=== PATIENT | female | born 1960 | race African-American/Black ===

== ENCOUNTER 2016-12-02 11:00 | Inpatient (IN) | payer MEDICARE, MEDICAID ==
[~2016-12-02 11:00] MED LIST: ISOVUE-370 76%-LOCM 1 ML ONE
[2016-12-02 11:59] LABS: #Lymphocytes 1.3 thou/uL (1.20-3.40); #Monocytes 0.3 thou/uL (0.11-0.59); #Neutrophils 11.6 thou/uL (1.40-6.50); %Basophils 0.3 % (0.0-1.0); %Lymphocytes 9.9 % (21.0-51.0); %Monocytes 2.3 % (0.0-10.0); Hematocrit 52.1 % (36.0-47.0); Mean Platelet Volume 7.8 fL (7.4-10.4); Red Blood Cell (RBC) Count 5.41 mill/uL (4.20-5.40); White Blood Cell (WBC) Count 13.3 thou/uL (4.8-10.8)
[2016-12-02 12:21] LABS: ALT (SGPT) 11 U/L (8-55); AST (SGOT) 15 U/L (5-34); Alkaline Phosphatase 94 U/L (40-150); Anion Gap 19 mmol/L (10-20); BUN (Urea Nitrogen) 10 mg/dL (9.8-20.1); Bilirubin, Total 0.5 mg/dL (0.2-1.2); Calc. Creatinine Clearance 0 mL/min (70-130); Carbon Dioxide 22 mmol/L (22-29); Chloride 101 mmol/L (98-107); Estimated GFR-MDRD Greater than 90; Lipase Less than 4 U/L (8-78); Protein, Total 8.3 g/dL (6.0-8.3)
[2016-12-02] MEDS ORDERED: Ondansetron ODT 4 MG TAB ONE (12:26)
[2016-12-02 12:31] LABS: Lactic Acid - Sepsis 4.2 mmol/L (0.5-2.2)
[2016-12-02 12:34] LABS: Troponin I Less than 0.010 ng/mL (< 0.028)
--- NOTE | 2016-12-02 12:53 | RAD ---
CHEST 1 VIEW: HISTORY: Chest pain. COMPARISON: 09/26/16. FINDINGS: The cardiac silhouette and pulmonary vasculature are unremarkable. Shallow inspiration accentuates pulmonary markings. Mediastinum is midline. There is no confluent airspace consolidation or eviden ce of pneumothorax. child monitor leads overlie the chest. IMPRESSION: No active cardiopulmonary abnormalities are demonstrated. POS: [facility]
[2016-12-02] MEDS ORDERED: cloNIDine HCl 0.1 MG TAB ONE ×2 (13:21→13:51)
[2016-12-02] MEDS ORDERED: Enalaprilat Dihydrate 1.25 MG/ML VIAL SLOW IVP SCH (14:30)
--- NOTE | 2016-12-02 15:49 | CT ---
CT ABDOMEN AND PELVIS WITH IV CONTRAST: 12/02/16 HISTORY: Sharp abdominal pain. COMPARISON: 10/16/16. FINDINGS: Mild atelectasis is present at the lung bases. The gallbladder is surgically absent with associated mild distention of the biliary system. Dystrophic calcifications are associated with an area of scar ring at the superior pole of the right kidney. There is prominent calcification throughout the arter ial structures. Lack of oral contrast limits evaluation of the bowel. There is no evidence of obstru ction. IMPRESSION: 1. Status post cholecystectomy. 2. Atherosclerosis. 3. No acute abnormalities are demonstrated. POS: [facility]
[2016-12-02 16:13] LABS: Bilirubin Negative (Negative); Blood, Urine Negative (Negative); Glucose, Urine (Dipstick) 100 mg/dL (Negative); Ketone, Urine Negative (Negative); Nitrite Negative (Negative); Protein, Urine (Dipstick) Trace mg/dL (Neg-Trace)
[2016-12-02 16:24] LABS: Amphetamine Not Detected (NotDetected); Methadone Not Detected (NotDetected); Methamphetamine Not Detected (NotDetected)
[2016-12-02 16:55] VITALS: BMI 29.5
[2016-12-02] MEDS ORDERED: Acetaminophen 325 MG TAB PO PRN (19:04)
[2016-12-02] MEDS ORDERED: tiZANidine HCl 4 MG TAB PO PRN (19:05)
--- NOTE | 2016-12-02 19:48 | HP ---
PRIMARY CARE PHYSICIAN: Adalberto Carlos M.D. CHIEF COMPLAINT: Abdominal pain and chest pain. HISTORY OF PRESENT ILLNESS: Ms. Aiken is a pleasant 56-year-old lady who was seen at [facility] on 12/02/2016. She reports that she developed pain all over her body around 1 1:00 p.m. last night. She reports eating [employer] last night. She describes that the pain is sh mariam, over both her abdomen and chest, nonradiating, not accompanied by nausea or vomiting. She had a bowel movement last night. She reports having similar pains in the past. She reports using crack cocaine 4 days ago. She describes that the pain was 10/10 at its worst, has improved since then. REVIEW OF SYSTEMS: The following complete review of systems was negative, unless otherwise mentione d in the HPI or below: Constitutional: Weight loss or gain, sense of well-being, ability to conduct usual activities, exer cise tolerance. Skin/Breast: Rash, itching, changes in hair growth or loss, nail changes, breast lumps, tenderness, swelling, nipple discharge. Eyes: Vision, double vision, tearing, blind spots, pain. ENT/Mouth: Headaches (location, time of onset, duration, precipitating factors), vertigo, lighthead edness, injury. Vision, double vision, tearing, blind spots, pain, nose bleeding, colds, obstruction , discharge, dental difficulties, gingival bleeding, dentures, neck stiffness, pain, tenderness, mas ses in thyroid or other areas. Cardiovascular: Precordial pain, substernal distress, palpitations, syncope, dyspnea on exertion, o rthopnea, nocturnal paroxysmal dyspnea, edema, cyanosis, hypertension, heart murmurs, varicosities, phlebitis, claudication. Respiratory: Pain, shortness of breath, wheezing, stridor, cough, hemoptysis, fever or night sweats . Gastrointestinal: Poor appetite, dysphagia, indigestion, abdominal pain, heartburn, eructation, elieser sea, vomiting, hematemesis, jaundice, constipation, or diarrhea, abnormal stools (carmelina-colored, salbador y, bloody, greasy, foul smelling), flatulence, hemorrhoids, recent changes in bowel habits. Genitourinary: Urgency, frequency, dysuria, nocturia, hematuria, polyuria, oliguria, unusual (or ch casey in) color of urine, stones, hesitancy, change in size of stream, dribbling, acute retention or incontinence, libido, potency. Musculoskeletal: Pain, swelling, redness or heat of muscles or joints, limitation, of motion, muscu lar weakness, atrophy, cramps. Neurologic/Psychiatric: Convulsions, paralyses, tremor, incoordination, paresthesias, difficulties with memory of speech, sensory or motor disturbances, or muscular coordination (ataxia, tremor), emo tional problems, anxiety, depression, previous psychiatric care, unusual perceptions, hallucinations . Allergy/Immunologic: Skin rash, anemia, bleeding tendency, polydipsia, polyuria, intolerance to hea t or cold. PAST MEDICAL HISTORY: Significant for hypertension, gastroesophageal reflux disease, degenerative j oint disease, depression, nausea, and vomiting. PAST SURGICAL HISTORY: Significant for cholecystectomy, appendectomy, and hysterectomy. FAMILY HISTORY: She denies any family history of coronary artery disease. ALLERGIES: No known drug allergies. CURRENT MEDICATIONS: Include alprazolam 2 mg 3 times a day, Flexeril 10 mg 3 times a day, naproxen 250 mg 2 times a day, omeprazole 40 mg daily, pregabalin 25 mg 2 times a day, tizanidine 2 mg 2 time s a day, venlafaxine 75 mg 2 times a day, clonidine 0.1 mg 2 times a day, and tramadol 100 mg 3 time s a day. PHYSICAL EXAMINATION: GENERAL: Ms. Aiken is awake and alert, in mild distress, crying. She reports that she is crying because she feels cold. She also reports that she is currently not in pain. VITAL SIGNS: Blood pressure is 168/96, pulse is 90, respiratory rate is 20, and she is saturating 9 8% on room air. She is afebrile. Earlier, she had a blood pressure as high as 222/130. EYES: No scleral icterus. No conjunctival pallor. ENT: Moist mucosal membranes, no oropharyngeal erythema or exudates. NECK: Supple, nontender, normal range of movement, trachea is midline. RESPIRATORY: Accessory muscles of breathing are not active. Chest wall movements are symmetric briana aterally. LUNGS: Clear to auscultation, without wheeze, rhonchi or crepitations. CARDIOVASCULAR: S1 and S2 are heard, regular. LUNGS: Peripheral pulses palpable. No carotid bruit, no pericardial rub. ABDOMEN: Soft, mild right lower quadrant tenderness, no guarding or rigidity, bowel sounds heard, n o hepatomegaly, no splenomegaly. NEUROLOGIC: Cranial nerves II-XII are intact. Deep tendon reflexes are 2+. MUSCULOSKELETAL: Power is 5/5 in all 4 extremities, normal range of movement at all major extremity joints. SKIN: No rashes or subcutaneous nodules. LYMPHATIC: No cervical lymphadenopathy. PSYCHIATRIC: The patient is tearful, oriented to person, place, and time. LABS AND INVESTIGATIONS: Ms. Aiken's labs and investigations were reviewed. I reviewed her elect rocardiogram, which shows normal sinus rhythm, no ST changes to suggest an acute coronary syndrome. I also reviewed her chest x-ray, which does not show any pulmonary infiltrates. She also had a CT scan of the abdomen and pelvis, which did not reveal any acute abnormalities. Laboratory investigat ion showed leukocytosis with 13,300 white cells, of which 87.5% are neutrophils, elevated hemoglobin of 17.1, normal platelet count, normal electrolytes, normal creatinine, elevated lactic acid of 4.2 at 11:47 hours today, trending down to 3.4 at 15:55 hours today, unremarkable liver profile, urinal ysis is positive for glucose, but negative for nitrates and leukocyte esterase and urine toxicology screen positive for opiates, cocaine metabolites and cannabinoids. ASSESSMENT AND PLAN: Ms. Aiken is a 56-year-old lady who was seen at [facility] on 12/02/2016. Her problem list includes: 1. Hypertensive urgency: Ms. Aiken has elevated blood pressures. She will be admitted to the [facility] and treated with antihypertensives, intravenously as needed. We will monitor her on telemetr y for now. 2. Abdominal pain: This appears to have improved significantly. No acute abnormality on CT scan o f the abdomen. 3. Chest pain: This has resolved as well. 4. Lactic acidosis: Clear etiology not identifiable. We will recheck her lactic acid level. We w ill also provide intravenous fluids for possible dehydration. 5. Leukocytosis: No clear evidence of infection. If she spikes a fever, we will start antibiotics . Please note that the chest x-ray and urine studies are unremarkable. CT scan of the abdomen and pelvis was also unremarkable. 6. Tobacco use: The patient has been counseled regarding tobacco cessation. 7. Recreational drug abuse: The patient has been counseled regarding cessation of recreational lesly g use. Many thanks for allowing me to participate in your patient's care. Please feel free to contact me w ith any questions or concerns. LEVEL OF RISK: High. LEVEL OF COMPLEXITY: High.
[2016-12-02] MEDS: Ondansetron HCl/PF 4 MG/2 ML Vial IVP PRN (21:25)
[2016-12-02] MEDS: cloNIDine HCl 0.1 MG TAB PO SCH (21:25)
[2016-12-02] MEDS: Cyclobenzaprine 10 MG TAB PO SCH (21:25)
[2016-12-02] MEDS: Pregabalin 25 MG CAP PO SCH (21:26)
[2016-12-02] MEDS: Naproxen 500 MG TAB PO SCH (21:26)
[2016-12-02] MEDS: traMADol HCl 50 MG TAB PO SCH (21:26)
[2016-12-02] MEDS: Nicotine 21 MG PATCH TD SCH (21:27)
[2016-12-03] MEDS: ALPRAZolam 1 MG TAB PO PRN ×2 (04:05→21:09)
[2016-12-03] MEDS: Ondansetron HCl/PF 4 MG/2 ML Vial IVP PRN (04:06)
[2016-12-03 05:28] LABS: #Lymphocytes 1.4 thou/uL (1.20-3.40); #Monocytes 1.2 thou/uL (0.11-0.59); #Neutrophils 10.8 thou/uL (1.40-6.50); %Basophils 0.3 % (0.0-1.0); %Eosinophils 0.1 % (0.0-10.0); %Lymphocytes 10.1 % (21.0-51.0); %Monocytes 8.6 % (0.0-10.0); Hematocrit 48.6 % (36.0-47.0); Mean Platelet Volume 7.5 fL (7.4-10.4); White Blood Cell (WBC) Count 13.4 thou/uL (4.8-10.8)
[2016-12-03 06:01] LABS: Anion Gap 15 mmol/L (10-20); BUN (Urea Nitrogen) 11 mg/dL (9.8-20.1); Calc. Creatinine Clearance 112 mL/min (70-130); Calcium 9.4 mg/dL (7.8-10.44); Carbon Dioxide 25 mmol/L (22-29); Chloride 98 mmol/L (98-107); Estimated GFR-MDRD Greater than 90
[2016-12-03] MEDS ORDERED: Potassium Chloride 20 MEQ TAB PO SCH (06:30)
[2016-12-03] MEDS: traMADol HCl 50 MG TAB PO SCH ×3 (09:48→21:05)
[2016-12-03] MEDS: Naproxen 500 MG TAB PO SCH ×2 (09:48→21:09)
[2016-12-03] MEDS: Enoxaparin Sodium 40 MG/0.4 ML SYRINGE SC SCH (09:49)
[2016-12-03] MEDS: Cyclobenzaprine 10 MG TAB PO SCH ×3 (09:49→21:04)
[2016-12-03] MEDS: cloNIDine HCl 0.1 MG TAB PO SCH ×2 (09:49→21:01)
[2016-12-03] MEDS: Pregabalin 25 MG CAP PO SCH ×2 (10:19→21:08)
--- NOTE | 2016-12-03 11:41 | PDOC.PN ---
- Subjective Encounter Start Date: 12/03/16 Encounter Start Time: 08:40 Pt seen for followup re: hypokalemia. Sleepy, says she feels better. Abdo pain better. No nausea, vomiting or diarrhea. - Objective MAR Reviewed: Yes Vital Signs & Weight: Vital Signs (12 hours) Temp Pulse Resp BP BP Pulse Ox 12/03/16 09:49 180/110 H 12/03/16 09:30 99.7 F H 102 H 16 180/110 H 92 L 12/03/16 04:05 99.1 F 102 H 18 115/78 95 Weight Weight 163 lb I&O: 12/02/16 12/03/16 12/04/16 06:59 06:59 06:59 Intake Total 800 Output Total 300 Balance 500 Result Diagrams: 12/03/16 04:24 12/03/16 04:24 EKG Reviewed by me: Yes (Tele: sinus tachycardia) Phys Exam - Physical Examination Constitutional: NAD HEENT: moist MMs, sclera anicteric Neck: supple Respiratory: no wheezing, no rales, no rhonchi, clear to auscultation bilateral Cardiovascular: RRR, no rub Gastrointestinal: soft, non-tender, no distention, positive bowel sounds Musculoskeletal: no edema, pulses present Neurological: non-focal, normal sensation, moves all 4 limbs Lymphatic: no nodes Psychiatric: normal affect Deviation from normal: Oriented to person and place, not to time. Skin: no rash, normal turgor, cap refill <2 seconds Dx/Plan (1) Hypokalemia Code(s): E87.6 - HYPOKALEMIA Status: Acute (2) Hypertensive urgency Code(s): I16.0 - HYPERTENSIVE URGENCY Status: Resolved (3) Leucocytosis Code(s): D72.829 - ELEVATED WHITE BLOOD CELL COUNT, UNSPECIFIED Status: Acute (4) Abdominal pain Code(s): R10.9 - UNSPECIFIED ABDOMINAL PAIN Status: Resolved (5) HTN (hypertension) Code(s): I10 - ESSENTIAL (PRIMARY) HYPERTENSION Status: Chronic (6) Tobacco abuse Code(s): Z72.0 - TOBACCO USE Status: Chronic (7) Lactic acidosis Code(s): E87.2 - ACIDOSIS Status: Resolved (8) Cocaine abuse Code(s): F14.10 - COCAINE ABUSE, UNCOMPLICATED Status: Chronic - Plan PT/OT, out of bed/ambulate, DVT proph w/lovenox * . Replace potassium. Mobilize pt. Counseled re: tobacco and recreational drug cessation. No evidence of infection, no fevers. BP improved. Likely home 1-2 days. Review of Systems - Medications/Allergies Allergies/Adverse Reactions: Allergies Allergy/AdvReac Type Severity Reaction Status Date / Time No Known Allergies Allergy Verified 01/14/16 05:51 Medications: Current Medications Acetaminophen (Tylenol) 650 mg PO Q4H PRN PRN Reason: Headache/Fever or Pain Alprazolam (Xanax) 2 mg PO TID PRN PRN Reason: Anxiety Last Admin: 12/03/16 04:05 Dose: 2 mg Clonidine HCl (Catapres) 0.1 mg PO BID [facility] Last Admin: 12/03/16 09:49 Dose: 0.1 mg Cyclobenzaprine HCl (Flexeril) 10 mg PO TID [facility] Last Admin: 12/03/16 09:49 Dose: 10 mg Enoxaparin Sodium (Lovenox) 40 mg SC 0900 [facility] Last Admin: 12/03/16 09:49 Dose: 40 mg Hydralazine HCl (Apresoline) 20 mg SLOW IVP Q6H PRN PRN Reason: SBP Greater Than 170 Naproxen (Naprosyn) 250 mg PO BID [facility] Last Admin: 12/03/16 09:48 Dose: 250 mg Nicotine (Nicoderm Patch) 21 mg TD Q24HR [facility] Last Admin: 12/02/16 21:27 Dose: Not Given Ondansetron HCl (Zofran) 4 mg IVP Q6H PRN PRN Reason: Nausea/Vomiting Last Admin: 12/03/16 04:06 Dose: 4 mg Pantoprazole Sodium (Protonix) 40 mg PO DAILY [facility] Last Admin: 12/03/16 09:49 Dose: 40 mg Pregabalin (Lyrica) 25 mg PO BID [facility] Last Admin: 12/03/16 10:19 Dose: 25 mg Tizanidine HCl (Zanaflex) 2 mg PO BID PRN PRN Reason: pain Tramadol HCl (Ultram) 100 mg PO TID [facility] Last Admin: 12/03/16 09:48 Dose: 100 mg Venlafaxine HCl (Effexor) 75 mg PO BID [facility] Last Admin: 12/03/16 09:49 Dose: 75 mg
[2016-12-03] MEDS: Potassium Chloride 20 MEQ TAB PO SCH ×3 (14:26→21:03)
[2016-12-03] MEDS: Nicotine 21 MG PATCH TD SCH (21:09)
[2016-12-04 05:20] LABS: Anion Gap 17 mmol/L (10-20); BUN (Urea Nitrogen) 26 mg/dL (9.8-20.1); Calc. Creatinine Clearance 33 mL/min (70-130); Calcium 8.8 mg/dL (7.8-10.44); Carbon Dioxide 16 mmol/L (22-29); Chloride 103 mmol/L (98-107); Estimated GFR-MDRD 27
[2016-12-04 05:52] LABS: Band 1 % (5-11); Hematocrit 47.8 % (36.0-47.0); Mean Platelet Volume 7.9 fL (7.4-10.4); Neutrophil 53 % (42-75); Reactive Lymphocytes 4 % (0-10); Red Blood Cell (RBC) Count 4.82 mill/uL (4.20-5.40); White Blood Cell (WBC) Count 8.3 thou/uL (4.8-10.8)
[2016-12-04] MEDS: cloNIDine HCl 0.1 MG TAB PO SCH ×2 (08:18→21:07)
[2016-12-04] MEDS: Naproxen 500 MG TAB PO SCH (08:19)
[2016-12-04] MEDS: Cyclobenzaprine 10 MG TAB PO SCH ×3 (08:20→21:13)
[2016-12-04] MEDS: Enoxaparin Sodium 40 MG/0.4 ML SYRINGE SC SCH (08:21)
[2016-12-04] MEDS: traMADol HCl 50 MG TAB PO SCH ×3 (08:22→21:13)
[2016-12-04] MEDS: Pregabalin 25 MG CAP PO SCH ×2 (10:02→21:00)
[2016-12-04 11:05] LABS: Anion Gap 17 mmol/L (10-20); BUN (Urea Nitrogen) 33 mg/dL (9.8-20.1); Calc. Creatinine Clearance 33 mL/min (70-130); Calcium 9.4 mg/dL (7.8-10.44); Carbon Dioxide 20 mmol/L (22-29); Chloride 103 mmol/L (98-107); Estimated GFR-MDRD 27
--- NOTE | 2016-12-04 11:28 | PDOC.PN ---
- Subjective Encounter Start Date: 12/04/16 Encounter Start Time: 11:28 Pt seen for followup re: BORIS. Denies chest pain, nausea or vomiting. No fevers or chills. - Objective MAR Reviewed: Yes Vital Signs & Weight: Vital Signs (12 hours) Temp Pulse Resp BP BP BP Pulse Ox 12/04/16 10:02 108/67 12/04/16 08:18 103/74 12/04/16 08:00 97.4 F L 62 18 103/74 92 L 12/04/16 05:00 97.4 F L 61 16 96/63 96/63 92 L 12/04/16 01:00 98.0 F 64 18 91/54 L 92 L Weight Weight 163 lb I&O: 12/03/16 12/04/16 12/05/16 06:59 06:59 06:59 Intake Total 800 Output Total 300 Balance 500 Result Diagrams: 12/04/16 03:55 12/04/16 10:24 Phys Exam - Physical Examination Constitutional: NAD HEENT: moist MMs Neck: supple Respiratory: no wheezing, no rales, no rhonchi, clear to auscultation bilateral Cardiovascular: RRR Gastrointestinal: soft Musculoskeletal: pulses present Neurological: moves all 4 limbs Psychiatric: normal affect Skin: no rash Dx/Plan (1) BORIS (acute kidney injury) Code(s): N17.9 - ACUTE KIDNEY FAILURE, UNSPECIFIED Status: Acute (2) Hypokalemia Code(s): E87.6 - HYPOKALEMIA Status: Resolved (3) Leucocytosis Code(s): D72.829 - ELEVATED WHITE BLOOD CELL COUNT, UNSPECIFIED Status: Resolved (4) Hypertensive urgency Code(s): I16.0 - HYPERTENSIVE URGENCY Status: Resolved (5) Abdominal pain Code(s): R10.9 - UNSPECIFIED ABDOMINAL PAIN Status: Resolved (6) HTN (hypertension) Code(s): I10 - ESSENTIAL (PRIMARY) HYPERTENSION Status: Chronic (7) Tobacco abuse Code(s): Z72.0 - TOBACCO USE Status: Chronic (8) Lactic acidosis Code(s): E87.2 - ACIDOSIS Status: Resolved (9) Cocaine abuse Code(s): F14.10 - COCAINE ABUSE, UNCOMPLICATED Status: Chronic - Plan PT/OT, out of bed/ambulate, DVT proph w/heparin * . Consult nephrology. Check renal US, urine lytes. Change Lovenox to heparin. Discussed with pt, updated her. Review of Systems - Review of Systems Constitutional: negative: Fever, Chills, Sweats, Weakness, Malaise Respiratory: negative: Cough, Dry, Shortness of Breath, Hemoptysis, SOB with Excertion, Pleuritic Pain, Sputum, Wheezing Cardiovascular: negative: Chest Pain, Palpitations, Orthopnea, Paroxysmal Noc. Dyspnea, Edema, Light Headedness Gastrointestinal: negative: Nausea, Vomiting, Abdominal Pain, Diarrhea, Constipation, Melena, Hematochezia - Medications/Allergies Allergies/Adverse Reactions: Allergies Allergy/AdvReac Type Severity Reaction Status Date / Time No Known Allergies Allergy Verified 01/14/16 05:51 Medications: Current Medications Acetaminophen (Tylenol) 650 mg PO Q4H PRN PRN Reason: Headache/Fever or Pain Last Admin: 12/03/16 17:10 Dose: 650 mg Alprazolam (Xanax) 2 mg PO TID PRN PRN Reason: Anxiety Last Admin: 12/03/16 21:09 Dose: 2 mg Clonidine HCl (Catapres) 0.1 mg PO BID [facility] Last Admin: 12/04/16 08:18 Dose: Not Given Cyclobenzaprine HCl (Flexeril) 10 mg PO TID [facility] Last Admin: 12/04/16 08:20 Dose: 10 mg Enoxaparin Sodium (Lovenox) 40 mg SC 0900 [facility] Last Admin: 12/04/16 08:21 Dose: 40 mg Hydralazine HCl (Apresoline) 20 mg SLOW IVP Q6H PRN PRN Reason: SBP Greater Than 170 Naproxen (Naprosyn) 250 mg PO BID [facility] Last Admin: 12/04/16 08:19 Dose: 250 mg Nicotine (Nicoderm Patch) 21 mg TD Q24HR [facility] Last Admin: 12/03/16 21:09 Dose: Not Given Ondansetron HCl (Zofran) 4 mg IVP Q6H PRN PRN Reason: Nausea/Vomiting Last Admin: 12/03/16 04:06 Dose: 4 mg Pantoprazole Sodium (Protonix) 40 mg PO DAILY [facility] Last Admin: 12/04/16 08:19 Dose: 40 mg Pregabalin (Lyrica) 25 mg PO BID [facility] Last Admin: 12/04/16 10:02 Dose: 25 mg Tizanidine HCl (Zanaflex) 2 mg PO BID PRN PRN Reason: pain Tramadol HCl (Ultram) 100 mg PO TID [facility] Last Admin: 12/04/16 08:22 Dose: 100 mg Venlafaxine HCl (Effexor) 75 mg PO BID [facility] Last Admin: 12/04/16 10:02 Dose: 75 mg
--- NOTE | 2016-12-04 12:55 | ULT ---
RENAL ULTRASOUND: HISTORY: Acute renal insufficiency. TECHNIQUE: Real-time imaging of the right and left kidneys was performed. FINDINGS: The right kidney measures 12.6 and the left kidney 13.5 cm in size. No signs of cyst, mass, or obst ruction. The bladder was incompletely distended at the time of this exam. IMPRESSION: Unremarkable renal ultrasound. POS: OFF
[2016-12-04 14:41] LABS: Sodium, Urine Less than 20 mmol/L (Not Available)
[2016-12-04] MEDS: Heparin 5,000 UNITS/ML VIAL SC SCH ×2 (14:48→21:12)
[2016-12-04 15:00] LABS: Potassium, Urine 78.4 mmol/L
[2016-12-04] MEDS ORDERED: Sodium Chloride 0.9% 1,000 ML IV SCH (17:15)
--- NOTE | 2016-12-04 17:33 | CON ---
DATE OF CONSULTATION: 12/04/2016 REASON FOR CONSULTATION: Elevated creatinine. HISTORY OF PRESENT ILLNESS: This is a 56-year-old female with a history of cocaine abuse, presented to the hospital on 12/02/2016 for abdominal and chest pain after cocaine use. The patient's baseli ne creatinine was 0.8 and increased to 2.2 yesterday, a repeat creatinine was also 2.3. The patient was hyperkalemic. The patient denies no headache, numbness, tingling, or weakness. Denies any elieser sea, vomiting, or chest pain. The patient has been using cocaine and naproxen. PAST MEDICAL HISTORY: Significant for chronic pain, GERD, degenerative joint disease, nausea, vomit ing, cholecystectomy, appendectomy, hysterectomy. FAMILY HISTORY: Negative for ESRD. ALLERGIES: Reviewed. HOME MEDICATIONS: List reviewed. REVIEW OF SYSTEMS: Fifteen point review of systems was performed and negative except positives note d above. GENERAL: Weakness- HEAD: Headache- NECK: No swelling or lumps. NOSE: No epistaxis or discharge. EYES: No diplopia or pain. RESPIRATORY: Dyspnea- CARDIOVASCULAR: Chest pain- GASTROINTESTINAL: Nausea- /[employer]: Hematuria- MUSCULOSKELETAL: No joint pain. NEUROPSYCHIATIC SYSTEMS: No suicidal ideation. No ideation. SKIN: Denies any rash or ulcer. CONSTITUTIONAL: No fever or chills. PHYSICAL EXAMINATION: GENERAL: Patient is awake, alert. VITAL SIGNS: Afebrile, pulse 70, breathing at 16, blood pressure 120/70. GENERAL APPEARANCE AND MENTAL STATUS: Fair. HEAD/NECK: Normocephalic. Atraumatic. EYES: EOMI. No deformity. EARS: Clear. No ulcers. NOSE: Intact. No lesions. MOUTH: Clear. No discharge. THROAT: Clear. No exudate. LUNGS: Clear. No crackles. CARDIAC: S1, S2. No rub. ABDOMEN: Benign. BS+. GENITALIA/RECTUM: Kelly absent. BACK/EXTREMITIES: Edema 0+ Ulcer- NEUROLOGICAL: Alert and motor intact. SKIN: Rash- Bruise- LYMPHATICS: Edema- Ulcer- ASSESSMENT AND RECOMMENDATIONS: 1. Acute kidney injury with chronic kidney disease, most likely due to cocaine as well as non-stero idal anti-inflammatory drugs use in the past. I would recommend the patient to stop doing this also advised the patient to quit tobacco. Start gentle hydration proteinuria, trace will recheck a urin e protein creatinine ratio. 2. Anemia, stable. 3. Hypertension, stable. 4. Proteinuria indicates chronic kidney disease, which was present prior to admission, I will order renal imaging and evaluate further as needed. The patient was educated as well.
[2016-12-04] MEDS: Nicotine 21 MG PATCH TD SCH (21:13)
[2016-12-04] MEDS: ALPRAZolam 1 MG TAB PO PRN (21:13)
[2016-12-05 05:29] LABS: #Basophils 0.1 thou/uL (0.0-0.2); #Eosinphils 0.5 thou/uL (0.0-0.7); #Lymphocytes 2.7 thou/uL (1.20-3.40); #Monocytes 0.9 thou/uL (0.11-0.59); #Neutrophils 3.3 thou/uL (1.40-6.50); %Basophils 1.2 % (0.0-1.0); %Eosinophils 6.5 % (0.0-10.0); %Lymphocytes 36.1 % (21.0-51.0); %Monocytes 11.9 % (0.0-10.0); Hematocrit 45.8 % (36.0-47.0); Mean Platelet Volume 7.7 fL (7.4-10.4); Red Blood Cell (RBC) Count 4.64 mill/uL (4.20-5.40); White Blood Cell (WBC) Count 7.5 thou/uL (4.8-10.8)
[2016-12-05 05:51] LABS: Anion Gap 11 mmol/L (10-20); BUN (Urea Nitrogen) 26 mg/dL (9.8-20.1); Calc. Creatinine Clearance 92 mL/min (70-130); Calcium 8.5 mg/dL (7.8-10.44); Carbon Dioxide 20 mmol/L (22-29); Chloride 109 mmol/L (98-107); Estimated GFR-MDRD 88
[2016-12-05 07:27] VITALS: BP 102/72; TEMP 97.9
--- NOTE | 2016-12-05 07:56 | PRG ---
DATE OF SERVICE: 12/05/2016 SUBJECTIVE: This is a 56-year-old female being seen for acute kidney injury. The patient denies an y nausea, vomiting or chest pain. PHYSICAL EXAMINATION: GENERAL: Patient is awake, alert. VITAL SIGNS: Afebrile, pulse 75, breathing at 16, blood pressure 102/72. GENERAL APPEARANCE AND MENTAL STATUS: Fair. HEAD/NECK: Normocephalic. Atraumatic. EYES: EOMI. No deformity. EARS: Clear. No ulcers. NOSE: Intact. No lesions. MOUTH: Clear. No discharge. THROAT: Clear. No exudate. LUNGS: Clear. No crackles. CARDIAC: S1, S2. No rub. ABDOMEN: Benign. BS+. GENITALIA/RECTUM: Kelly absent. BACK/EXTREMITIES: Edema 0+ Ulcer- NEUROLOGICAL: Alert and motor intact. SKIN: Rash- Bruise- LYMPHATICS: Edema- Ulcer- LABORATORY DATA: Show potassium 4.2, bicarbonate 20. ASSESSMENT AND RECOMMENDATIONS: 1. Acute kidney injury, improved. 2. Metabolic acidosis, stable. 3. Hyponatremia, stable. We will sign off on this patient. The patient will follow up as an outpatient.
[2016-12-05] MEDS: cloNIDine HCl 0.1 MG TAB PO SCH (08:07)
[2016-12-05] MEDS: traMADol HCl 50 MG TAB PO SCH (08:09)
[2016-12-05] MEDS: Pregabalin 25 MG CAP PO SCH (08:09)
[2016-12-05] MEDS: Cyclobenzaprine 10 MG TAB PO SCH (08:09)
[2016-12-05] MEDS: Heparin 5,000 UNITS/ML VIAL SC SCH (08:10)
--- NOTE | 2016-12-05 13:27 | DIS ---
DATE OF ADMISSION: 12/02/2016 DATE OF DISCHARGE: 12/05/2016 PRIMARY CARE PHYSICIAN: Kirsten Carlos M.D. DISCHARGE DIAGNOSES: 1. Acute renal failure, resolved. 2. Hyponatremia, resolved. 3. Abdominal pain, resolved. CONDITION OF PATIENT AT THE TIME OF DISCHARGE: Stable. I assessed Ms. Aiken on the day of discha rge. She denies any chest pain or shortness of breath. She denies any fevers or chills. PHYSICAL EXAMINATION: VITAL SIGNS: Stable. HEENT: Mucosal membranes are moist. NECK: Supple, nontender, S1 and S2 are heard, regular. LUNGS: Clear to auscultation bilaterally. ABDOMEN: Soft, nontender, bowel sounds heard, no hepatomegaly. NEUROLOGIC: Examination is nonfocal. Power is 5/5 in all 4 extremities. No rashes or subcutaneous nodules. The patient is oriented to person, place, and time. DISCHARGE MEDICATIONS: Naproxen was stopped because of renal failure. Alprazolam 2 mg 3 times a da y as needed, Flexeril 10 mg 3 times a day, Nicoderm 21 mg patch daily, omeprazole 40 mg daily, Becca a 25 mg 2 times a day, tizanidine 2 mg 2 times a day as needed, Effexor 75 mg 2 times a day, clonidi ne 0.1 mg 2 times a day, tramadol 100 mg 3 times a day. FOLLOWUP APPOINTMENT: With her primary care provider in 1-3 days. HOSPITAL COURSE: Ms. Aiken is a pleasant 56-year-old lady who was admitted to [facility] on 12/05/2016 complaining of abdominal pain. She had a CT scan of the abdomen and pe lvis which did not reveal any acute abnormality. She did have an elevated lactate level at the time of admission, which subsequently resolved. She also had hyponatremia, which resolved on the day of discharge. Her creatinine was 0.69 on 12/02/2016. It jumped to 2.27 on 12/04/2016. Nephrology Service was con sulted. It was felt that the most likely cause was her use of cocaine and naproxen. She has been a dvised to stop recreational drug use as well as naproxen use. Her creatinine improved to 0.82 on day of discharge. She had renal ultrasound, which was unremarkable. LABORATORY DATA: On the day of discharge, Ms. Aiken has sodium 136, potassium 4.2, creatinine 0.8 2, blood urea nitrogen 26, white count 7,500, hemoglobin 14.5 and platelet count 267,000. She is ad vised to maintain good oral fluid intake. DISCHARGE DESTINATION: Home. TOTAL AMOUNT OF TIME SPENT COORDINATING THIS DISCHARGE: 33 minutes. Many thanks for allowing me to participate in your patient's care. Please feel free to contact me w ith any questions or concerns.
== END 2016-12-05 10:58 | disposition home or self-care (01) | DRG 305 ==
LOC: ERS 11:00 → 2NO 16:47 → T4-B 12-03 18:18
PROVIDERS: ADMIT Internal Medicine; ATTEND Internal Medicine
DX: I16.0 Hypertensive urgency (principal); N17.9 Acute kidney failure, unspecified; E87.2 Acidosis; E87.1 Hypo-osmolality and hyponatremia; E87.5 Hyperkalemia; I12.9 Hypertensive chronic kidney disease with stage 1 through stage 4 chronic kidney disease, or unspecified chronic kidney disease; N18.9 Chronic kidney disease, unspecified; R80.9 Proteinuria, unspecified; D64.9 Anemia, unspecified; D72.829 Elevated white blood cell count, unspecified; F14.10 Cocaine abuse, uncomplicated; F17.210 Nicotine dependence, cigarettes, uncomplicated
CPT/HCPCS: 36415; 36416; 71010; 74177; 76770; 80048; 80053; 80306; 81003; 82436; 82553; 82570; 83605; 83690; 84133; 84300; 84484; 85025; 93005; 96361; 96372; 96374; 96375; J0360; J1644; J1650; J2270; J2405; Q0162

== ENCOUNTER 2017-03-10 12:40 | Inpatient (IN) | payer MEDICARE, MEDICAID ==
[2017-03-10] MEDS ORDERED: Ondansetron HCl/PF 4 MG/2 ML Vial ONE ×2 (13:27→16:06)
[2017-03-10] MEDS ORDERED: cloNIDine 0.1 MG TAB ONE ×2 (14:09→16:00)
[2017-03-10] MEDS ORDERED: Morphine 4 MG/ML Carpuject ONE (14:38)
[2017-03-10 15:03] LABS: #Eosinphils 0.1 thou/uL (0.0-0.7); #Lymphocytes 1.3 thou/uL (1.20-3.40); #Monocytes 0.5 thou/uL (0.11-0.59); #Neutrophils 10.1 thou/uL (1.40-6.50); %Basophils 0.3 % (0.0-1.0); %Eosinophils 0.5 % (0.0-10.0); %Lymphocytes 11.2 % (21.0-51.0); %Monocytes 4.2 % (0.0-10.0); %Neutrophils 83.8 % (42.0-75.0); Hemoglobin 16.7 g/dL (12.0-16.0); Mean Corpuscular HGB CONC 32.5 g/dL (32.0-36.0); Mean Corpuscular Hemoglobin 31.3 pg (27.0-31.0); Mean Corpuscular Volume 96.2 fl (81.0-99.0); Mean Platelet Volume 8.3 fL (7.4-10.4); Platelet Count 270 thou/uL (130-400); RBC Distribution Width 12.6 % (11.5-14.5); Red Blood Cell (RBC) Count 5.36 mill/uL (4.20-5.40)
[2017-03-10 15:19] LABS: ALT (SGPT) 14 U/L (8-55); AST (SGOT) 18 U/L (5-34); Albumin 4.3 g/dL (3.5-5.0); Alkaline Phosphatase 102 U/L (40-150); Anion Gap 18 mmol/L (10-20); BUN (Urea Nitrogen) 12 mg/dL (9.8-20.1); Bilirubin, Total 0.4 mg/dL (0.2-1.2); CK (CPK) 57 U/L (29-168); Calc. Creatinine Clearance 0 mL/min (70-130); Carbon Dioxide 23 mmol/L (22-29); Chloride 103 mmol/L (98-107); Estimated GFR-MDRD Greater than 90; Globulin 3.7 g/dL (2.4-3.5); Glucose 117 mg/dL (70-105); Potassium 3.2 mmol/L (3.5-5.1); Sodium 141 mmol/L (136-145)
[2017-03-10 15:22] LABS: CKMB 2.6 ng/mL (0-6.6); Troponin I Less than 0.010 ng/mL (< 0.028)
[2017-03-10] MEDS ORDERED: Lorazepam 1 MG TAB ONE (16:01)
[2017-03-10 16:06] LABS: Bilirubin Negative (Negative); Blood, Urine Negative (Negative); Clarity CLEAR (Clear); Glucose, Urine (Dipstick) 100 mg/dL (Negative); Leukocyte Negative (Negative); Nitrite Negative (Negative); Protein, Urine (Dipstick) Trace mg/dL (Neg-Trace); Specific Gravity, Urine 1.018 (1.002-1.036); Urobilinogen 0.2 mg/dL (0.2-1.0); pH, Urine 7.5 (5.0-9.0)
[2017-03-10 16:18] LABS: Amphetamine Not Detected (NotDetected); Barbiturates Screen Not Detected (NotDetected); Benzodiazepine Screen Not Detected (NotDetected); Cocaine Metabolite Screen Not Detected (NotDetected); Medtox Reader # READER 1; Methadone Not Detected (NotDetected); Methamphetamine Not Detected (NotDetected); Opiate Screen Not Detected (NotDetected); Oxycodone Screen Not Detected (NotDetected); Phencyclidine (PCP) Not Detected (NotDetected); THC/Cannabinoid Screen Detected (NotDetected); Tricyclic Screen Not Detected (NotDetected)
[2017-03-10 16:19] LABS: Medtox Control Line Valid? VALID (VALID)
--- NOTE | 2017-03-10 16:44 | CT ---
CTA CHEST AND ABDOMEN AORTIC DISSECTION PROTOCOL 03/10/17 HISTORY: Pain. COMPARISON: CTA 08/19/16. There are also numerous other prior CT examinations between the these two. TECHNIQUE: CT angiogram chest and abdomen performed after the intravenous administration of contrast. 3D renderi ng provided. No aortic dissection. No aneurysmal dilatation. There is focal ectasia of the infrarenal abdominal aorta just above the bifurcation measuring 2.4 cm. no aneurysmal dilatation. There is a fo abraham 50% narrowing of the left internal iliac artery for a length of 5 mm. The right and left common i liac arteries measure up to 11 mm. The superior mesenteric artery and celiac trunk are patent as well as the inferior mesenteric artery. No free intraperitoneal gas or fluid, although the entire pelvis is not interrogated on this examina tion. Small calcified hilar lymph nodes. Pulmonary trunk size is at 30 mm, upper limits of normal. There is reservoir effect of the extrahepatic biliary system. No dilated loops of large or small bowel. There is some calcified granulomas in the right middle lobe and right lower lobe. Focal area of pleur al scarring in the right middle lobe. No evidence for pneumonia. 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 No lucio gayla fracture of the thoracic spine. There is 2 mm L4 over L5 anterolisthesis. This is due to degenerative facet arthropathy. No displaced rib fracture. IMPRESSION: No aortic dissection. No acute intrathoracic or intra-abdominal abnormality. POS: [facility]
[2017-03-10] MEDS ORDERED: niCARdipine 20MG In NaCl 20 MG/200 ML BAG ONE (17:54)
[2017-03-10] MEDS ORDERED: Ondansetron ODT 4 MG TAB SL PRN (20:13)
[2017-03-10] MEDS ORDERED: Ondansetron HCl/PF 4 MG/2 ML Vial IVP PRN (20:13)
[2017-03-10] MEDS ORDERED: Acetaminophen 325 MG TAB PO PRN (20:34)
[2017-03-10] MEDS ORDERED: Ondansetron ODT 4 MG TAB PO PRN (20:34)
[2017-03-10] MEDS: niCARdipine HCl 25 MG in Sodium Chloride 0.9% 250 ML 240 ML IVPB SCH (20:58)
[2017-03-10] MEDS: Sodium Chloride 0.9% 1,000 ML IV SCH (20:58)
[2017-03-10] MEDS: HYDROcodone/Acetaminophen 5/325 mg Tablet PO PRN (20:59)
[2017-03-10] MEDS: Famotidine/PF 20 mg/2ml Vial SLOW IVP SCH (20:59)
[2017-03-10] MEDS: Nicotine 14 MG PATCH TD SCH (21:00)
--- NOTE | 2017-03-11 01:04 | HP ---
CHIEF COMPLAINT: Not feeling good. HISTORY OF PRESENT ILLNESS: A 56-year-old woman with history of hypertension, anxiety. She came into the ER, not feeling good. No appetite, feeling nausea, vomiting, weakness. In the ER, her blood pressure is very high. In the ER, her blood pressure was 191/104, respirations 20, pulse 61, and temperature 98.1. In the ER, she was started on nicardipine drip. Blood pressure went to 220/148. She claims of marijuana use and alcohol use recently and denies any chest pain. She does have nausea, vomiting, and no short of breath. PAST MEDICAL HISTORY: History of hypertension, GERD. PAST SURGICAL HISTORY: Appendectomy, cholecystectomy, and hysterectomy. PSYCHIATRIC HISTORY: No history of any homicidal ideation, anxiety, depression. SOCIAL HISTORY: Denies. She drinks socially every week and denies drug use, but she is a chronic smoker. ALLERGIES: She has no known drug allergies. REVIEW OF SYSTEMS: Constitutional: She does have some general weakness. Eyes : Denies any vision changes. ENT: Denies rhinorrhea. Cardiovascular: Denies any chest pain, dyspnea on exertion, and syncopal episode. No palpitation. Respiratory: Denies any cough, short of breath, and wheezing. Gastrointestinal: She does have nausea and vomiting. Genitourinary: No dysuria, no frequency, no hesitancy. Musculoskeletal: She reports generalized pain. Skin: She denies any rash. Neurologic: She denies any dizziness, any focal weakness. Endocrine: She denies any polyuria or polydipsia. Denies any rash. Hematologic: Denies any anemia and bruising. Psychiatric: She does have history of anxiety. FAMILY HISTORY: Noncontributory. Positive for hypertension. PHYSICAL EXAMINATION: GENERAL: When I examined her, she is a middle-aged woman lying in the bed, not in distress, feeling nauseated. VITAL SIGNS: Pulse 74, blood pressure 160/98 and on nicardipine drip. RESPIRATORY: She has diminished breath sounds. HEENT: Head is atraumatic, normocephalic. Pupils are round and reactive. Extraocular movements intact. Ears, nose, and throat normal. Tongue mucosa moist. NECK: Supple, no JVD, no thyromegaly, no carotid bruit. CHEST: Has a normal vascular breathing, no added sound, no rhonchi, no wheezing. CARDIOVASCULAR SYSTEM: S1, S2 audible. No S3 or S4. ABDOMEN: Soft, bowel sounds audible, mild epigastric tenderness. EXTREMITIES: No pedal edema. NEUROLOGICAL: She is alert and oriented x3, no focal deficit. LABORATORY DATA: Shows WBC is 12.0, hemoglobin 16.7, hematocrit 51.5, platelets 270. Sodium 141, potassium 3.2, chloride 103, carbon dioxide 23, BUN 12, creatinine 0.7, calcium 10.0, bilirubin 0.4, glucose 117, AST 18, ALT 14. Troponin less than 0.012. BNP 89. Albumin 4.3, globulin 3.7, ratio 1.2. Urine shows glucose trace, ketones trace. Urine drug screen negative except for cannabinoid positive. The CT chest shows no dissection. EKG shows normal sinus rhythm, 77, no ST changes. In the ER, medicine was given Cardene IV then first given was Ativan 1 mg oral, clonidine 0.1 mg in the beginning, morphine injection 4 mg and Zofran intravenous. ASSESSMENT AND PLAN: Hypertensive emergency versus urgency. Continue IV Cardene drip. Low salt diet, monitor closely. Rule out myocardial infarction by serial EKG and troponin. Get echocardiogram in the morning. Restart home medication. Deep venous thrombosis prophylaxis, Lovenox. Current medications taking, clonidine, Catapres 0.1 mg twice daily. MTDD
[2017-03-11] MEDS: HYDROcodone/Acetaminophen 5/325 mg Tablet PO PRN (02:01)
[2017-03-11] MEDS: Sodium Chloride 0.9% 1,000 ML IV SCH (02:02)
[2017-03-11] MEDS: niCARdipine HCl 25 MG in Sodium Chloride 0.9% 250 ML 240 ML IVPB SCH (02:02)
[2017-03-11 03:14] VITALS: BMI 31.1
[2017-03-11 05:06] LABS: #Monocytes 0.5 thou/uL (0.11-0.59); #Neutrophils 11.1 thou/uL (1.40-6.50); %Basophils 0.2 % (0.0-1.0); %Eosinophils 0.1 % (0.0-10.0); %Lymphocytes 7.9 % (21.0-51.0); %Monocytes 3.9 % (0.0-10.0); %Neutrophils 87.8 % (42.0-75.0); Hemoglobin 16.8 g/dL (12.0-16.0); Mean Corpuscular HGB CONC 33.5 g/dL (32.0-36.0); Mean Corpuscular Hemoglobin 31.6 pg (27.0-31.0); Mean Corpuscular Volume 94.3 fl (81.0-99.0); Mean Platelet Volume 8.4 fL (7.4-10.4); Platelet Count 244 thou/uL (130-400); RBC Distribution Width 12.6 % (11.5-14.5); Red Blood Cell (RBC) Count 5.32 mill/uL (4.20-5.40); White Blood Cell (WBC) Count 12.6 thou/uL (4.8-10.8)
[2017-03-11 05:17] LABS: Anion Gap 15 mmol/L (10-20); BUN (Urea Nitrogen) 8 mg/dL (9.8-20.1); Calc. Creatinine Clearance 135 mL/min (70-130); Calcium 9.2 mg/dL (7.8-10.44); Carbon Dioxide 23 mmol/L (22-29); Chloride 100 mmol/L (98-107); Estimated GFR-MDRD Greater than 90; Glucose 132 mg/dL (70-105); Sodium 135 mmol/L (136-145)
[2017-03-11 05:20] LABS: Potassium 2.9 mmol/L (3.5-5.1)
[2017-03-11 06:48] LABS: Magnesium 1.9 mg/dL (1.6-2.6); Phosphorus 2.9 mg/dL (2.3-4.7)
[2017-03-11] MEDS ORDERED: Potassium Chloride 40 MEQ in Sodium Chloride 0.9% 250 ML 250 ML IVPB SCH (07:00)
[2017-03-11] MEDS: niCARdipine HCl 25 MG in Sodium Chloride 0.9% 250 ML 240 ML IVPB PRN ×2 (07:38→20:04)
[2017-03-11] MEDS: Enoxaparin Sodium 40 MG/0.4 ML SYRINGE SC SCH (08:40)
[2017-03-11] MEDS: Famotidine/PF 20 mg/2ml Vial SLOW IVP SCH ×2 (08:40→20:41)
--- NOTE | 2017-03-11 08:40 | PDOC.PN ---
- Subjective Encounter Start Date: 03/11/17 Encounter Start Time: 08:38 Subjective: Seen and examined feeling better - Objective Resuscitation Status: Resuscitation Status FULL:Full Resuscitation Vital Signs & Weight: Vital Signs (12 hours) Temp Pulse Resp Pulse Ox 03/11/17 08:03 100 03/11/17 07:40 99.0 F 106 H 18 100 03/11/17 07:00 99.0 F 03/11/17 04:00 98.6 F 03/11/17 00:00 98.6 F Weight Weight 175 lb 11.335 oz Most Recent Monitor Data Heart Rate from ECG 93 NIBP 124/68 NIBP BP-Mean 86 Respiration from ECG 16 SpO2 100 I&O: 03/10/17 03/11/17 03/12/17 06:59 06:59 06:59 Intake Total 1847 436 Output Total 650 350 Balance 1197 86 Result Diagrams: 03/11/17 03:55 03/11/17 03:55 Phys Exam - Physical Examination Constitutional: NAD HEENT: PERRLA, moist MMs, sclera anicteric, TM's clear Neck: no nodes, no JVD, supple, full ROM Respiratory: no wheezing, no rales, no rhonchi, clear to auscultation bilateral Cardiovascular: RRR, no significant murmur, no rub Gastrointestinal: soft, non-tender, no distention, positive bowel sounds Musculoskeletal: no edema, pulses present Dx/Plan (1) Hypokalemia Code(s): E87.6 - HYPOKALEMIA Status: Acute (2) Anxiety Code(s): F41.9 - ANXIETY DISORDER, UNSPECIFIED Status: Acute (3) Nausea Code(s): R11.0 - NAUSEA Status: Acute (4) Hypertensive urgency Code(s): I16.0 - HYPERTENSIVE URGENCY Status: Resolved - Plan PT/OT, social media content specialist Start/adjust antihypertensive meds and wean off cardene gtt -: D/c IVF -: Transfer to Tele once off gtt * .
[2017-03-11] MEDS ORDERED: traMADol HCl 50 MG TAB PO PRN (08:41)
[2017-03-11] MEDS ORDERED: cloNIDine 0.2mg/24 Hour PATCH TD SCH (09:00)
[2017-03-11] MEDS: ALPRAZolam 1 MG TAB PO SCH ×2 (09:11→20:41)
[2017-03-11] MEDS: Cyclobenzaprine 10 MG TAB PO SCH ×3 (09:11→20:41)
[2017-03-11] MEDS ORDERED: Carvedilol 25 MG TAB PO SCH (09:30)
[2017-03-11] MEDS: Lisinopril/Hydrochlorothiazide 20/25 mg Tablet PO SCH (10:25)
[2017-03-11] MEDS ORDERED: cloNIDine 0.1 MG TAB PO SCH (11:45)
[2017-03-11] MEDS: Labetalol HCl 100 MG/20 ML VIAL SLOW IVP PRN (14:36)
[2017-03-11] MEDS: Potassium Chloride 20 MEQ TAB PO SCH ×2 (16:10→20:41)
[2017-03-11] MEDS: Carvedilol 25 MG TAB PO SCH (16:38)
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
[2017-03-11] MEDS: cloNIDine 0.1 MG TAB PO SCH (20:40)
[2017-03-11] MEDS: Nicotine 14 MG PATCH TD SCH (20:41)
[2017-03-12] MEDS: Labetalol HCl 100 MG/20 ML VIAL SLOW IVP PRN ×2 (00:05→06:10)
[2017-03-12] MEDS: HYDROcodone/Acetaminophen 5/325 mg Tablet PO PRN ×2 (03:25→13:21)
[2017-03-12 04:36] LABS: Magnesium 2.1 mg/dL (1.6-2.6)
[2017-03-12] MEDS: cloNIDine 0.1 MG TAB PO SCH (08:07)
[2017-03-12] MEDS: ALPRAZolam 1 MG TAB PO SCH (08:07)
[2017-03-12] MEDS: Carvedilol 25 MG TAB PO SCH (08:07)
[2017-03-12] MEDS: Cyclobenzaprine 10 MG TAB PO SCH ×2 (08:07→13:21)
[2017-03-12] MEDS: Enoxaparin Sodium 40 MG/0.4 ML SYRINGE SC SCH (08:07)
[2017-03-12] MEDS: Lisinopril/Hydrochlorothiazide 20/25 mg Tablet PO SCH (08:08)
[2017-03-12] MEDS: Famotidine/PF 20 mg/2ml Vial SLOW IVP SCH (08:08)
[2017-03-12] MEDS ORDERED: FLU VACC QS2017-18 36 mo. & older 0.5 ML SYRINGE IM ONE (09:00)
--- NOTE | 2017-03-12 09:17 | PRG ---
DATE OF SERVICE: 03/12/2017 This morning blood pressure is better. PHYSICAL EXAMINATION: VITAL SIGNS: Blood pressure 157/90, pulse 110, respirations 18. Denies any pain, shortness of breath or wheezing. CHEST: Chest revealed decreased breath sounds, no wheezing or crackles. CARDIAC: Normal S1-S2. No gallops. ABDOMEN: Soft. No masses. Potassium 3, otherwise electrolytes are normal. IMPRESSION: Uncontrolled hypertension, probably poor compliance. PLAN: She can be transferred out of the ICU. She is to refrain from smoking. Pulmonary will follow at a distance.
[2017-03-12 09:28] VITALS: BP 186/90; TEMP 98
--- NOTE | 2017-03-12 11:54 | PDOC.PN ---
- Subjective Encounter Start Date: 03/12/17 Encounter Start Time: 12:30 Subjective: Patient crying because getting blood drawn. Very emotional and -: asking why have to get blood drawn so many times. Complains of chest -: pain, states since got here but no previous complaint on examining chart. Patient asked nurse for morphine earlier for pain, refused oral meds. Does have a history of drug abuse. BP improved somewhat, but still requiring multiple doses of labetalol overnight. - Objective Resuscitation Status: Resuscitation Status FULL:Full Resuscitation MAR Reviewed: Yes Vital Signs & Weight: Vital Signs (12 hours) Temp Pulse Resp BP BP Pulse Ox 03/12/17 09:38 98 F 76 16 03/12/17 09:27 98 F 76 16 186/90 H 96 03/12/17 08:00 98.2 F 59 L 22 H 100 03/12/17 06:10 71 180/109 H 03/12/17 06:00 98.4 F 03/12/17 04:00 98.4 F 03/12/17 00:05 88 191/103 H Weight Weight 175 lb 11.335 oz Most Recent Monitor Data Heart Rate from ECG 62 NIBP 157/96 NIBP BP-Mean 138 Respiration from ECG 22 SpO2 100 I&O: 03/11/17 03/12/17 03/13/17 06:59 06:59 06:59 Intake Total 1847 1803 240 Output Total 650 2600 0 Balance 1197 -797 240 Result Diagrams: 03/11/17 03:55 03/11/17 13:15 Phys Exam - Physical Examination crying about blood draw HEENT: moist MMs Respiratory: no wheezing, no rales, no rhonchi Cardiovascular: RRR, no significant murmur Gastrointestinal: soft, positive bowel sounds Musculoskeletal: no edema Neurological: non-focal, moves all 4 limbs Psychiatric: A&O x 3 Deviation from normal: crying Dx/Plan (1) Hypertensive urgency Code(s): I16.0 - HYPERTENSIVE URGENCY Status: Resolved (2) Diastolic CHF Code(s): I50.30 - UNSPECIFIED DIASTOLIC (CONGESTIVE) HEART FAILURE Status: Acute Qualifiers: Congestive heart failure chronicity: unspecified congestive heart failure chronicity Qualified Code(s): I50.30 - Unspecified diastolic (congestive) heart failure Comment: EF 55-60% (3) Obesity Code(s): E66.9 - OBESITY, UNSPECIFIED Status: Chronic Qualifiers: Body mass index: BMI 30.0-30.9 (4) AMALIA (obstructive sleep apnea) Code(s): G47.33 - OBSTRUCTIVE SLEEP APNEA (ADULT) (PEDIATRIC) Status: Suspected - Plan cont current plan of care out of unit, likely home tomorrow -: increase Coreg * . - Discharge Day Encounter end time: 12:45
[2017-03-12] MEDS ORDERED: Carvedilol 25 MG TAB PO SCH (17:00)
--- NOTE | 2017-03-14 13:19 | DIS ---
ADMISSION DIAGNOSIS: Hypertensive urgency. DISCHARGE DIAGNOSES: 1. Hypertensive urgency, left against medical advice. 2. Diastolic congestive heart failure. 3. Obstructive sleep apnea. HOSPITAL COURSE: The patient was admitted for hypertensive urgency. She was being treated with improvement in the hospital; however, her electrolytes are not back to normal and her blood pressure was still out of control, then after being asked for a blood draw, she became very emotional and kept asking why she is getting blood drawn so frequently. She started walking in the hallway and demanded that she be allowed to leave. Security was called. She was escorted to her room. Doctor was paged and she was given anxiety medication, however she was still refusing to leave and she signed AMA paperwork before the doctor could come and speak with her. MIHIR
== END 2017-03-12 13:50 | disposition left against medical advice (07) | DRG 305 ==
LOC: ERS 12:40 → CCU 20:05 → 2SE 03-12 09:20
PROVIDERS: ADMIT Internal Medicine; ATTEND Internal Medicine
DX: I16.0 Hypertensive urgency (principal); I50.30 Unspecified diastolic (congestive) heart failure; E66.01 Morbid (severe) obesity due to excess calories; I11.0 Hypertensive heart disease with heart failure; G47.33 Obstructive sleep apnea (adult) (pediatric); K21.9 Gastro-esophageal reflux disease without esophagitis; E87.6 Hypokalemia; F41.9 Anxiety disorder, unspecified; F12.10 Cannabis abuse, uncomplicated; M54.9 Dorsalgia, unspecified; G89.29 Other chronic pain; Z68.31 Body mass index [BMI] 31.0-31.9, adult; Z91.19 Patient's noncompliance with other medical treatment and regimen
CPT/HCPCS: 36415; 71275; 80048; 80053; 80306; 80307; 81003; 82553; 83735; 83880; 84100; 84484; 85025; 93005; 93306; 96374; 96375; 96376; A4216; J1650; J2270; J2405; J3480; J7050; Q0162; S0028

== ENCOUNTER 2019-06-12 21:26 | Inpatient (IN) | payer MEDICARE, OTHER ==
[~2019-06-12 21:26] MED LIST changes: -ISOVUE-370 76%-LOCM 1 ML ONE; +Iopamidol 370 76% 100 ML VIAL ONE
[2019-06-12] MEDS ORDERED: Promethazine HCl 25 MG/ML VIAL ONE (21:42)
[2019-06-12] MEDS ORDERED: Morphine 4 MG/ML VIAL ONE (21:42)
[2019-06-12] MEDS ORDERED: Piperacillin/Tazobactam 4.5 GM VIAL ONE (21:48)
[2019-06-12] MEDS ORDERED: Acetaminophen 500 MG TAB ONE (21:48)
[2019-06-12 22:06] LABS: Hemoglobin 19.2 g/dL (12.0-16.0); Mean Corpuscular HGB CONC 32.6 g/dL (32.0-36.0); Mean Corpuscular Volume 95.2 fL (78.0-98.0); Mean Platelet Volume 9.1 fL (7.4-10.4); Platelet Count 353 thou/uL (130-400); RBC Distribution Width 13.8 % (11.5-14.5); Red Blood Cell (RBC) Count 6.19 mill/uL (4.20-5.40); White Blood Cell (WBC) Count 24.5 thou/uL (4.8-10.8)
--- NOTE | 2019-06-12 22:21 | RAD ---
Chest one view HISTORY: Chest pain. COMPARISON: 12/02/2016. FINDINGS: Cardiac silhouette and pulmonary vasculature are unremarkable. Mediastinum is midline. No c onfluent airspace consolidation or evidence of pneumothorax. Amorphous calcification projecting over the left rotator cuff suggests calcific tendinosis. electronic device monitor leads overlie the chest. IMPRESSION : No active cardiopulmonary abnormalities are demonstrated.
[2019-06-12 22:31] LABS: Band 4 % (5-11); Lymphocytes 10 % (21-51); MDiff Complete? YES; Monocytes 4 % (0-10); Neutrophil 82 % (42-75); Platelet Morphology Comment Appears Adequate; RBC Morphology Normal
--- NOTE | 2019-06-12 22:43 | CT ---
CT abdomen and pelvis with IV contrast HISTORY: Abdomen pain. Nausea. COMPARISON: 03/10/2017. FINDINGS: Lung parenchyma scarring and dystrophic calcification at the lung bases. Calcified granulom rita within the solid organs are consistent with healed granulomatous disease. Gallbladder is surgically absent with mild associated distention of the biliary system. Calcification throughout the arterial structures. Small calcifications at each renal hilum are favore d to be arterial in origin. No hydronephrosis. No evidence of bowel obstruction or inflammation. Urinary bladder is decompressed. Degenerative changes throughout the lumbar spine. IMPRESSION : Atherosclerosis. No acute abnormalities are demonstrated.
[2019-06-12 22:56] LABS: Bacteria/HPF None Seen HPF (None Seen); Bilirubin Negative (Negative); Blood, Urine 1+ (Negative); Clarity Turbid (Clear); Glucose, Urine (Dipstick) Normal (Negative); Leukocyte Negative Leu/uL (Negative); Nitrite Negative (Negative); Protein, Urine (Dipstick) 200 mg/dL (Neg-Trace); RBC/HPF 21-50 HPF (0-3); Squamous Epithelial 0-3 HPF (0-3); Urobilinogen Normal mg/dL (Less than 2); WBC/HPF Greater than 50 HPF (0-3)
[2019-06-12] MEDS ORDERED: Aspirin 325 MG TAB ONE (22:58)
[2019-06-12 23:20] LABS: CKMB 5.9 ng/mL (0-6.6)
[2019-06-12 23:23] LABS: Globulin 5.1 g/dL (2.4-3.5)
[2019-06-12] MEDS ORDERED: cefTRIAXone\\ROCEPHIN 2 GM VIAL ONE (23:24)
[2019-06-12] MEDS ORDERED: Fentanyl 100 MCG/2 ML VIAL ONE (23:24)
[2019-06-12] MEDS ORDERED: Sodium Chloride 0.9% 1,000 ML IV SCH (23:45)
[2019-06-12] MEDS ORDERED: Ondansetron ODT 4 MG TAB PO PRN (23:56)
[2019-06-12] MEDS ORDERED: Acetaminophen 325 MG TAB PO PRN (23:56)
[2019-06-12] MEDS ORDERED: Acetaminophen 650 MG Suppository PR PRN (23:56)
[2019-06-13 00:11] LABS: Albumin 3.7 g/dL (3.5-5.0)
[2019-06-13 00:12] LABS: Chloride 100 mmol/L (98-107); Potassium 3.1 mmol/L (3.5-5.1); Sodium 134 mmol/L (136-145)
[2019-06-13 00:13] LABS: Calcium 8.5 mg/dL (7.8-10.44)
[2019-06-13 00:14] LABS: Glucose 116 mg/dL (70-105); Protein, Total 7.2 g/dL (6.0-8.3)
[2019-06-13 00:15] LABS: Anion Gap 22 mmol/L (10-20); Bilirubin, Total 0.8 mg/dL (0.2-1.2); Carbon Dioxide 15 mmol/L (22-29)
[2019-06-13 00:16] LABS: Alkaline Phosphatase 87 U/L (40-110)
[2019-06-13 00:17] LABS: Calc. Creatinine Clearance 0 mL/min (70-130); Estimated GFR-MDRD 26
[2019-06-13 00:18] LABS: BUN (Urea Nitrogen) 29 mg/dL (9.8-20.1)
[2019-06-13 00:19] LABS: ALT (SGPT) 20 U/L (8-55); AST (SGOT) 27 U/L (5-34)
[2019-06-13 00:20] LABS: CK (CPK) 226 U/L (29-168); Lipase 15 U/L (8-78)
--- NOTE | 2019-06-13 00:31 | PDOC.HHP ---
Hospitalist HPI - History of Present Illness abdominal pain History of Present Illness: Case of an 59y/o female with pmhx of hypertension and congestive heart failure who comes to hospital due to abdominal pain and general malaise. patient refers she was on her usual state of health until sunday, 5 days ago, when she started with abdominal pain 10/10 non radiating concentrated on her lower quadrants associated with diarrhea nausea and vomiting. patient describes atleast 2 episodes of vomiting a day and multiple episodes of diarrhea described as non bloody interchanging watery and loose stools. patient states her symptoms kept worsening for which she decided to come to hospital for evaluation. At the ed patient was found to be on severe sepsis with wbc 24k, tachycardic, febrile and elevated troponins, for which hospitalist was consulted for further evaluation and management. patient deneis any fever, sob,cough, chest pain dysuria, does refers chills generalize malaise, weakness and anorexia. of note patient recently used abx for tooth infection, was pnc cannot recall name. Hospitalist ROS - Review of Systems All other systems reviewed; all pertinent +/- noted in HPI/Subj Hospitalist History - Past Medical History Source: patient Cardiac: reports: CHF, HTN - Exam General Appearance: ill appearing Eye: PERRL, anicteric sclera ENT: normocephalic atraumatic, no oropharyngeal lesions Neck: supple, symmetric, no JVD, no thyromegaly Heart: RRR, no murmur, no gallops, no rubs Respiratory: CTAB, no wheezes, no rales, no ronchi Gastrointestinal: soft, non-distended, normal bowel sounds, no palpable masses, tender to palpation Extremities: no cyanosis, no clubbing, no edema Skin: normal turgor, no lesions Neurological: cranial nerve grossly intact, normal sensation to touch Musculoskeletal: normal tone, normal strength, no muscle wasting Psychiatric: normal affect, normal behavior, A&O x 3 Hospitalist Results - Labs Result Diagrams: 06/12/19 21:40 06/12/19 22:59 Lab results: WBC 24.5 thou/uL (4.8-10.8) H 06/12/19 21:40 Hgb 19.2 g/dL (12.0-16.0) H 06/12/19 21:40 Hct 59.0 % (36.0-47.0) H 06/12/19 21:40 MCV 95.2 fL (78.0-98.0) 06/12/19 21:40 Plt Count 353 thou/uL (130-400) 06/12/19 21:40 Band Neuts % (Manual) 4 % (5-11) L 06/12/19 21:40 Sodium 134 mmol/L (136-145) L 06/12/19 22:59 Potassium 3.1 mmol/L (3.5-5.1) L 06/12/19 22:59 Chloride 100 mmol/L (98-107) 06/12/19 22:59 Carbon Dioxide 15 mmol/L (22-29) L 06/12/19 22:59 Glucose 116 mg/dL (70-105) H 06/12/19 22:59 Lactic Acid 8.5 mmol/L (0.5-2.2) H* 06/12/19 22:16 Calcium 8.5 mg/dL (7.8-10.44) 06/12/19 22:59 Total Bilirubin 0.8 mg/dL (0.2-1.2) 06/12/19 22:59 CK-MB (CK-2) 5.9 ng/mL (0-6.6) 06/12/19 21:40 Troponin I 0.132 ng/mL (< 0.028) H 06/12/19 21:40 Serum Total Protein 7.2 g/dL (6.0-8.3) 06/12/19 22:59 Albumin 3.7 g/dL (3.5-5.0) 06/12/19 22:59 Urine Ketones Negative mg/dL (Negative) 06/12/19 22:33 Urine Blood 1+ (Negative) A 06/12/19 22:33 Urine Nitrite Negative (Negative) 06/12/19 22:33 Ur Leukocyte Esterase Negative Abdullahi/uL (Negative) 06/12/19 22:33 Urine RBC 21-50 HPF (0-3) A 06/12/19 22:33 Urine WBC Greater than 50 HPF (0-3) A 06/12/19 22:33 Ur Squamous Epith Cells 0-3 HPF (0-3) 06/12/19 22:33 Urine Bacteria None Seen HPF (None Seen) 06/12/19 22:33 Hospitalist H&P A/P - Problem (1) Severe sepsis Code(s): A41.9 - SEPSIS, UNSPECIFIED ORGANISM; R65.20 - SEVERE SEPSIS WITHOUT SEPTIC SHOCK Status: Acute (2) Elevated troponin Code(s): R79.89 - OTHER SPECIFIED ABNORMAL FINDINGS OF BLOOD CHEMISTRY Status : Acute (3) Diastolic CHF Code(s): I50.30 - UNSPECIFIED DIASTOLIC (CONGESTIVE) HEART FAILURE Status: Acute Qualifiers: Qualified Code(s): I50.30 - Unspecified diastolic (congestive) heart failure (4) Hypokalemia Code(s): E87.6 - HYPOKALEMIA Status: Acute (5) Nausea & vomiting Code(s): R11.2 - NAUSEA WITH VOMITING, UNSPECIFIED Status: Acute (6) UTI (urinary tract infection) Status: Acute (7) HTN (hypertension) Code(s): I10 - ESSENTIAL (PRIMARY) HYPERTENSION Status: Chronic (8) Obesity Code(s): E66.9 - OBESITY, UNSPECIFIED Status: Chronic Qualifiers: Body mass index: BMI 30.0-30.9 (9) Tobacco abuse Code(s): Z72.0 - TOBACCO USE Status: Chronic (10) Lactic acidosis Code(s): E87.2 - ACIDOSIS Status: Resolved - Plan Plan: severe sepsis - patient w severe sepsis, elevated wbc 24k, fever tachycardia, elevated lactid at 8 with elevated troponins. patient started on sepsis bundles , w iv fluids, abx and cultures. source is unclear, could be colitis vs uti, will cover empirically with zosyn elevated troponins - likely nstemi type 2, due to sepsis. will continue to send troponins for trend evaluation, pt w/o sign of acs, none the less will evaluated modifiable risk factors w lipid panel and a1c. consider cardiology evaluation if needed uti - patient w elevated wbc in u/a, f/u blood and urine cultures covered w zosyn due to possible colitis. f/u c dif, recent use of abx noted covid r/o - patient with abdominal symptoms cxr with hazy oppasities by ED doc which started covid isolation and evaluation, pt denies any sick contacts, travel or respiratory symptoms chf - stable chronic, not in acute exacerbation, monitor due to aggressive iv hydration due to sepsis htn - holding medication for now in the setting of sepsis. consider restarting when more stable hypokalemia - replace, evaluated mg nause and vomiting - symptomatic tx prn
[2019-06-13] MEDS ORDERED: Potassium Chloride 20 MEQ TAB PO SCH (01:00)
[2019-06-13 02:02] VITALS: BMI 34.0
[2019-06-13 02:29] LABS: Lactic Acid 3.9 mmol/L (0.5-2.2)
[2019-06-13] MEDS: HYDROcodone/Acetaminophen 5/325 mg Tablet PO PRN ×3 (02:29→20:01)
[2019-06-13 04:44] LABS: #Lymphocytes 2.6 thou/uL (1.20-3.40); #Monocytes 2.5 thou/uL (0.11-0.59); #Neutrophils 24.8 thou/uL (1.40-6.50); %Eosinophils 0.1 % (0.0-10.0); %Lymphocytes 8.8 % (21.0-51.0); %Monocytes 8.3 % (0.0-10.0); %Neutrophils 82.8 % (42.0-75.0); Hemoglobin 18.1 g/dL (12.0-16.0); Mean Corpuscular HGB CONC 32.4 g/dL (32.0-36.0); Mean Corpuscular Volume 98.9 fL (78.0-98.0); Mean Platelet Volume 7.9 fL (7.4-10.4); Platelet Count 243 thou/uL (130-400); RBC Distribution Width 13.6 % (11.5-14.5); Red Blood Cell (RBC) Count 5.65 mill/uL (4.20-5.40); White Blood Cell (WBC) Count 29.9 thou/uL (4.8-10.8)
[2019-06-13 04:46] LABS: Calcium 8.3 mg/dL (7.8-10.44); Chloride 94 mmol/L (98-107); Sodium 132 mmol/L (136-145); Triglycerides 155 mg/dL (Less than 150)
[2019-06-13 04:56] LABS: Troponin I 0.055 ng/mL (< 0.028)
[2019-06-13 05:08] LABS: Anion Gap 23 mmol/L (10-20)
[2019-06-13 05:24] LABS: BUN (Urea Nitrogen) 28 mg/dL (9.8-20.1); Calc. Creatinine Clearance 42 mL/min (70-130); Carbon Dioxide 18 mmol/L (22-29); Estimated GFR-MDRD 30; Glucose 121 mg/dL (70-105)
[2019-06-13 05:25] LABS: ALT (SGPT) 19 U/L (8-55); AST (SGOT) 22 U/L (5-34); Albumin 3.6 g/dL (3.5-5.0); Alkaline Phosphatase 84 U/L (40-110); Bilirubin, Total 0.5 mg/dL (0.2-1.2); Cholesterol 185 mg/dL (< 200 Desired); Magnesium 1.9 mg/dL (1.6-2.6); Protein, Total 6.6 g/dL (6.0-8.3)
[2019-06-13 05:26] LABS: HDL Cholesterol 38 mg/dL (>60 Neg Risk); LDL Cholesterol, Calculated 116 mg/dL
[2019-06-13 05:27] LABS: Cardiac Risk 4.9 (Less than 4.5)
[2019-06-13] MEDS ORDERED: Piperacillin/Tazobactam 3.375 GM in Sodium Chloride 0.9% 100 ML IVPB SCH (06:00)
[2019-06-13 08:34] LABS: Hemoglobin A1c 5.4 % (4.0-6.0)
[2019-06-13 09:08] LABS: Cardiac Risk 4.7 (Less than 4.5)
[2019-06-13] MEDS ORDERED: Lactated Ringer's 1,000 ML IV SCH (09:30)
--- NOTE | 2019-06-13 09:56 | CON ---
DATE OF CONSULTATION: 06/13/2019 CONSULTING PHYSICIAN: Cliffordist . REASON FOR CONSULTATION: Sepsis syndrome. HISTORY OF PRESENT ILLNESS: The patient will not verbalize much to me. What I have is gathered from talking to the nursing staff, reviewing history and physical, and She is 59 years old and presented last night with abdominal pain 5 days' duration. She had had some episodes of vomiting and diarrhea. She was noted to be slightly hypotensive with a high white blood cell count. She has been admitted for treatment. She is also undergoing a rule out COVID workup. PAST MEDICAL HISTORY: 1. Congestive heart failure-diastolic. 2. Hypertension. PAST SURGICAL HISTORY: Cholecystectomy, appendectomy, hysterectomy. ALLERGIES: NONE. PSYCHIATRIC HISTORY: Unremarkable. SOCIAL HISTORY: Apparently drinks socially and also smokes. I am not sure about drug use. REVIEW OF SYSTEMS: The patient is not forthcoming, so otherwise negative. MEDICATIONS: Prior to admission; 1. Tramadol. 2. Clonidine. 3. Omeprazole. 4. Hydrocodone/APAP. 5. Diclofenac. 6. Flexeril. 7. Alprazolam. PHYSICAL EXAMINATION: VITAL SIGNS: Heart rate 64, blood pressure 86/60, respiratory rate 24, O2 saturation 97%. GENERAL: She is awake, does not appear to be in any distress. HEENT: Clear. NECK: No adenopathy or JVD. LUNGS: Clear. CARDIAC: S1, S2. Regular. ABDOMEN: Mildly tender to deep palpation. No rebound. EXTREMITIES: No clubbing, cyanosis, or edema. LABORATORY DATA: Sodium 132, potassium 3, chloride 94, CO2 of 18, BUN 28, creatinine 2.0, and glucose 121. Troponin 0.05. White blood cell count 29.9, hematocrit 55.8, and platelet count 243. Urinalysis showed greater than 50 white blood cells. ASSESSMENT: 1. Sepsis-likely abdominal or urinary source. 2. Azotemia. 3. Doubt this is a COVID case. PLAN: 1. The patient will undergo fluid resuscitation with lactated Ringer's. Continue the antibiotics. 2. Would suggest GI input if her abdominal pain persists. 3. She can be managed on the medical floor. Job ID: [id number]
[2019-06-13] MEDS: Enoxaparin Sodium 30 MG/0.3 ML SYRINGE SC SCH (10:01)
[2019-06-13] MEDS: Ondansetron PF 4 MG/2 ML Vial IVP PRN (10:02)
[2019-06-13] MEDS: Famotidine 20 MG TAB PO SCH (10:02)
--- NOTE | 2019-06-13 12:41 | PDOC.EVN ---
Event Note - Event Note Event Note: inherited patient this morning, much improved, alert and oriented x 3 though sluggish speech. HD stable, abdominal pain improved. CT abd benign, presentation and labs c/w severe dehydration due to gastroenteritis/colitis, possibly BORIS (no previous data). Started on fluids by PCCM. In agreement with PCCM regarding deescalation of care, transfered to telemetry floor considering troponinemia, reported history of HF in context of electrolyte imbalance. No history or signs/symptoms suspicious of COVID. pending rule out
[2019-06-13] MEDS: Piperacillin/Tazobactam 2.25 GM in Sodium Chloride 0.9% 100 ML IVPB SCH ×3 (13:22→23:59)
[2019-06-13 13:57] LABS: Potassium 2.9 mmol/L (3.5-5.1)
[2019-06-13] MEDS: HYDROcodone/Acetaminophen 7.5/325 mg Tablet PO PRN ×2 (15:51→23:59)
[2019-06-14] MEDS: Piperacillin/Tazobactam 2.25 GM in Sodium Chloride 0.9% 100 ML IVPB SCH ×4 (05:13→23:22)
[2019-06-14] MEDS ORDERED: Piperacillin/Tazobactam 3.375 GM in Sodium Chloride 0.9% 100 ML IVPB SCH (06:00)
[2019-06-14] MEDS: Enoxaparin Sodium 30 MG/0.3 ML SYRINGE SC SCH (08:00)
[2019-06-14] MEDS: Famotidine 20 MG TAB PO SCH (08:00)
--- NOTE | 2019-06-14 10:38 | EKG ---
Test Reason : Blood Pressure : / mmHG Vent. Rate : 093 BPM Atrial Rate : 093 BPM P-R Int : 148 ms QRS Dur : 074 ms QT Int : 412 ms P-R-T Axes : 024 035 073 degrees QTc Int : 512 ms Sinus rhythm with Premature atrial complexes Possible Anterior infarct , age undetermined Prolonged QT Abnormal ECG Confirmed by PACO CHAUDHARI M.D. ([id number]), supervising editor trailer TAINA DUGAN ([id number]) on 06/14/2019 10:38:18 AM Referred By: Confirmed By:PACO CHAUDHARI M.D.
[2019-06-14] MEDS ORDERED: Potassium Chloride 20 MEQ TAB PO SCH (11:00)
[2019-06-14] MEDS: HYDROcodone/Acetaminophen 7.5/325 mg Tablet PO PRN ×3 (11:57→20:05)
--- NOTE | 2019-06-14 14:30 | PDOC.HOSPP ---
- Subjective Encounter Date: 06/14/19 Subjective: C/O abdominal pain - Objective Vital Signs & Weight: Vital Signs (12 hours) Temp Pulse Resp BP BP Pulse Ox 06/14/19 12:05 98 F 71 20 172/77 H 98 06/14/19 08:07 97.3 F L 56 L 18 108/59 L 96 06/14/19 02:54 97.8 F 59 L 17 112/56 L 97 Weight Admit Weight 191 lb 12.832 oz Weight 191 lb 12.832 oz Most Recent Monitor Data Heart Rate from ECG 59 NIBP 89/60 NIBP BP-Mean 69 Respiration from ECG 22 SpO2 100 I&O: 06/13/19 06/14/19 06/15/19 06:59 06:59 06:59 Intake Total 340 2020 Output Total 0 100 Balance 340 1920 Result Diagrams: 06/13/19 04:18 06/13/19 13:28 Hospitalist ROS - Medication Medications: Active Medications Generic Name Dose Route Start Last Admin Trade Name Freq PRN Reason Stop Dose Admin Acetaminophen 650 mg 06/12/19 23:56 06/13/19 10:01 Tylenol PO 650 mg Q4H PRN Administration Headache/Fever/Mild Pain (1-3) Hydrocodone Bitart/Acetaminophen 1 tab 06/12/19 23:56 06/13/19 20:01 Icard 5/325 PO 1 tab Q4H PRN Administration Moderate Pain (4-6) Hydrocodone Bitart/Acetaminophen 2 tab 06/12/19 23:56 06/14/19 11:57 Icard 7.5/325 PO 2 tab Q4H PRN Administration Severe Pain (7-10) Enoxaparin Sodium 30 mg 06/13/19 09:00 06/14/19 08:00 Lovenox SC 30 mg 0900 JACOB Administration Famotidine 20 mg 06/13/19 09:00 06/14/19 08:00 Pepcid PO 20 mg DAILY JACOB Administration Piperacillin Sod/Tazobactam 100 mls @ 200 mls/hr 06/13/19 12:00 06/14/19 11: 47 Sod 2.25 gm/ Sodium Chloride IVPB 100 mls Q6HR JACOB Administration Ondansetron HCl 4 mg 06/12/19 23:56 06/13/19 10:02 Zofran IVP 4 mg Q6H PRN Administration Nausea/Vomiting Sodium Chloride 10 ml 06/13/19 09:00 06/14/19 08:00 Flush - Normal Saline IVF 10 ml Q12HR JACOB Administration - Exam General Appearance: awake alert ENT: normocephalic atraumatic Neck: supple, no JVD Heart: RRR Respiratory: normal chest expansion, no tachypnea Gastrointestinal: tender to palpation Neurological: cranial nerve grossly intact, no new deficit Hosp A/P (1) Severe sepsis Code(s): A41.9 - SEPSIS, UNSPECIFIED ORGANISM; R65.20 - SEVERE SEPSIS WITHOUT SEPTIC SHOCK Status: Acute (2) BORIS (acute kidney injury) Code(s): N17.9 - ACUTE KIDNEY FAILURE, UNSPECIFIED Status: Acute (3) Hypokalemia Code(s): E87.6 - HYPOKALEMIA Status: Acute - Plan Sepsis due to UTI. COVID-19 test remains pending. Replace potassium. Continue IV Zosyn.
[2019-06-14 14:50] LABS: Hemoglobin 15.2 g/dL (12.0-16.0); Mean Corpuscular HGB CONC 31.7 g/dL (32.0-36.0); Mean Corpuscular Hemoglobin 30.9 pg (27.0-31.0); Mean Corpuscular Volume 97.5 fL (78.0-98.0); Mean Platelet Volume 8.4 fL (7.4-10.4); Platelet Count 243 thou/uL (130-400); RBC Distribution Width 13.2 % (11.5-14.5); Red Blood Cell (RBC) Count 4.93 mill/uL (4.20-5.40); White Blood Cell (WBC) Count 20.9 thou/uL (4.8-10.8)
[2019-06-14 15:14] LABS: Band 3 % (5-11); Lymphocytes 8 % (21-51); MDiff Complete? YES; Monocytes 6 % (0-10); Neutrophil 82 % (42-75); Platelet Morphology Comment Appears Adequate; RBC Morphology Normal
[2019-06-14 15:26] LABS: Anion Gap 14 mmol/L (10-20); BUN (Urea Nitrogen) 11 mg/dL (9.8-20.1); Calc. Creatinine Clearance 109 mL/min (70-130); Calcium 8.7 mg/dL (7.8-10.44); Carbon Dioxide 24 mmol/L (22-29); Chloride 104 mmol/L (98-107); Estimated GFR-MDRD Greater than 90; Glucose 99 mg/dL (70-105); Magnesium 1.9 mg/dL (1.6-2.6); Potassium 3.9 mmol/L (3.5-5.1); Sodium 138 mmol/L (136-145)
[2019-06-14] MEDS: Ondansetron PF 4 MG/2 ML Vial IVP PRN (15:46)
[2019-06-15] MEDS: HYDROcodone/Acetaminophen 7.5/325 mg Tablet PO PRN ×4 (00:51→20:46)
[2019-06-15] MEDS: Piperacillin/Tazobactam 2.25 GM in Sodium Chloride 0.9% 100 ML IVPB SCH ×4 (05:07→23:56)
[2019-06-15 06:38] LABS: Anion Gap 14 mmol/L (10-20); BUN (Urea Nitrogen) 6 mg/dL (9.8-20.1); Calc. Creatinine Clearance 118 mL/min (70-130); Calcium 8.7 mg/dL (7.8-10.44); Carbon Dioxide 27 mmol/L (22-29); Chloride 105 mmol/L (98-107); Estimated GFR-MDRD Greater than 90; Glucose 128 mg/dL (70-105); Potassium 3.9 mmol/L (3.5-5.1); Sodium 142 mmol/L (136-145)
[2019-06-15 06:39] LABS: Hemoglobin 14.1 g/dL (12.0-16.0); Lymphocytes 14 % (21-51); MDiff Complete? YES; Mean Corpuscular Hemoglobin 31.9 pg (27.0-31.0); Mean Corpuscular Volume 96.7 fL (78.0-98.0); Mean Platelet Volume 7.9 fL (7.4-10.4); Monocytes 6 % (0-10); Neutrophil 80 % (42-75); Platelet Count 251 thou/uL (130-400); Platelet Morphology Comment Appears Adequate; RBC Distribution Width 13.1 % (11.5-14.5); RBC Morphology Normal; Red Blood Cell (RBC) Count 4.42 mill/uL (4.20-5.40); White Blood Cell (WBC) Count 15.9 thou/uL (4.8-10.8)
[2019-06-15] MEDS: Famotidine 20 MG TAB PO SCH (08:04)
[2019-06-15] MEDS: Enoxaparin Sodium 30 MG/0.3 ML SYRINGE SC SCH (08:04)
--- NOTE | 2019-06-15 13:08 | PDOC.HOSPP ---
- Subjective Encounter Date: 06/15/19 Subjective: Feels better. - Objective Vital Signs & Weight: Vital Signs (12 hours) Temp Pulse Resp BP BP Pulse Ox 06/15/19 12:32 98.5 F 75 16 149/97 H 97 06/15/19 11:45 98.5 F 75 16 149/97 H 97 06/15/19 08:21 97.9 F 87 18 167/72 H 97 Weight Admit Weight 191 lb 12.832 oz Weight 191 lb 12.832 oz Most Recent Monitor Data Heart Rate from ECG 59 NIBP 89/60 NIBP BP-Mean 69 Respiration from ECG 22 SpO2 100 I&O: 06/14/19 06/15/19 06/16/19 06:59 06:59 06:59 Intake Total 2020 3079 Output Total 100 Balance 1920 3079 Result Diagrams: 06/15/19 06:06 06/15/19 06:06 Hospitalist ROS - Medication Medications: Active Medications Generic Name Dose Route Start Last Admin Trade Name Freq PRN Reason Stop Dose Admin Acetaminophen 650 mg 06/12/19 23:56 06/13/19 10:01 Tylenol PO 650 mg Q4H PRN Administration Headache/Fever/Mild Pain (1-3) Hydrocodone Bitart/Acetaminophen 1 tab 06/12/19 23:56 06/13/19 20:01 [place] 5/325 PO 1 tab Q4H PRN Administration Moderate Pain (4-6) Hydrocodone Bitart/Acetaminophen 2 tab 06/12/19 23:56 06/15/19 13:03 [place] 7.5/325 PO 2 tab Q4H PRN Administration Severe Pain (7-10) Enoxaparin Sodium 30 mg 06/13/19 09:00 06/15/19 08:04 Lovenox SC 30 mg 0900 JACOB Administration Famotidine 20 mg 06/13/19 09:00 06/15/19 08:04 Pepcid PO 20 mg DAILY JACOB Administration Piperacillin Sod/Tazobactam 100 mls @ 200 mls/hr 06/13/19 12:00 06/15/19 11: 28 Sod 2.25 gm/ Sodium Chloride IVPB 100 mls Q6HR JACOB Administration Ondansetron HCl 4 mg 06/12/19 23:56 06/14/19 15:46 Zofran IVP 4 mg Q6H PRN Administration Nausea/Vomiting Sodium Chloride 10 ml 06/13/19 09:00 06/15/19 08:05 Flush - Normal Saline IVF 10 ml Q12HR JACOB Administration - Exam General Appearance: awake alert ENT: normocephalic atraumatic Neck: supple Heart: RRR Respiratory: normal chest expansion, no tachypnea Extremities: no cyanosis, no clubbing, no edema Neurological: cranial nerve grossly intact, no focal deficits Hosp A/P (1) Severe sepsis Code(s): A41.9 - SEPSIS, UNSPECIFIED ORGANISM; R65.20 - SEVERE SEPSIS WITHOUT SEPTIC SHOCK Status: Acute (2) BORIS (acute kidney injury) Code(s): N17.9 - ACUTE KIDNEY FAILURE, UNSPECIFIED Status: Acute (3) Hypokalemia Code(s): E87.6 - HYPOKALEMIA Status: Acute - Plan Sepsis due to UTI. COVID-19 test remains pending. Leukocytosis improving. CX showing no growth so far. Continue IV Zosyn.
[2019-06-15] MEDS ORDERED: cloNIDine 0.2 MG TAB PO SCH (17:00)
[2019-06-15] MEDS: cloNIDine 0.1 MG TAB PO SCH (20:41)
[2019-06-16] MEDS: HYDROcodone/Acetaminophen 7.5/325 mg Tablet PO PRN ×2 (01:22→05:18)
[2019-06-16] MEDS: Piperacillin/Tazobactam 2.25 GM in Sodium Chloride 0.9% 100 ML IVPB SCH (05:17)
[2019-06-16 06:43] LABS: Eosinophils 4 % (0-10); Hemoglobin 13.9 g/dL (12.0-16.0); Lymphocytes 29 % (21-51); MDiff Complete? YES; Mean Corpuscular HGB CONC 30.9 g/dL (32.0-36.0); Mean Corpuscular Hemoglobin 29.7 pg (27.0-31.0); Mean Corpuscular Volume 96.4 fL (78.0-98.0); Mean Platelet Volume 8.3 fL (7.4-10.4); Monocytes 10 % (0-10); Neutrophil 57 % (42-75); Platelet Count 269 thou/uL (130-400); Platelet Morphology Comment Appears Adequate; RBC Distribution Width 12.9 % (11.5-14.5); Red Blood Cell (RBC) Count 4.66 mill/uL (4.20-5.40); White Blood Cell (WBC) Count 11.9 thou/uL (4.8-10.8)
[2019-06-16 06:53] LABS: Anion Gap 13 mmol/L (10-20); BUN (Urea Nitrogen) 10 mg/dL (9.8-20.1); Calc. Creatinine Clearance 111 mL/min (70-130); Calcium 9.1 mg/dL (7.8-10.44); Carbon Dioxide 27 mmol/L (22-29); Chloride 101 mmol/L (98-107); Estimated GFR-MDRD Greater than 90; Glucose 119 mg/dL (70-105); Sodium 138 mmol/L (136-145)
[2019-06-16 07:47] VITALS: TEMP 98.5
[2019-06-16] MEDS ORDERED: ALPRAZolam 1 MG TAB PO SCH (08:00)
--- NOTE | 2019-06-16 08:03 | PDOC.EVN ---
Event Note - Event Note Event Note: Nurse reported patient wanted to leave. BP is up because she is anxious about going home. On exam, she is calm and appropriate. She says there is too much mystery here. [place] like things were bouncing off the [place]ined[place]. Thought someone suspicious was in her room. She has not seen [facility], but was supposed to at some point in the future. She is willing to stay and talk to Dr. Seymour when he comes. Will order her usual home meds of venlafaxin, amlodipine and a one time dose of xanax 1 mg (takes 2mg bid at home).
[2019-06-16] MEDS: Famotidine 20 MG TAB PO SCH (08:42)
[2019-06-16] MEDS: cloNIDine 0.1 MG TAB PO SCH (08:42)
[2019-06-16 08:43] VITALS: BP 196/95
[2019-06-16] MEDS: Enoxaparin Sodium 30 MG/0.3 ML SYRINGE SC SCH (08:43)
[2019-06-16] MEDS ORDERED: Amlodipine 10 MG TAB PO SCH (09:00)
[2019-06-16] MEDS ORDERED: Venlafaxine HCl XR 150 MG CAP PO SCH (09:00)
--- NOTE | 2019-06-16 22:43 | DIS ---
DATE OF ADMISSION: 06/12/2019 DATE OF DISCHARGE: 06/16/2019 HISTORY OF PRESENT ILLNESS AND HOSPITAL COURSE: The patient is a 59-year-old female with past medical history of CHF, who presented to the hospital with complaints of abdominal pain and malaise. Her symptoms were associated with vomiting and some diarrhea. She tried to cope with her symptoms at home, but they continued to progress, so she presented to the ER. She was found to be febrile and her leukocyte count was elevated to 24,000. She was admitted to the hospital for further evaluation. The patient's urinalysis revealed evidence of UTI. She was started on broad-spectrum IV antibiotics and IV hydration. She was also tested for coronavirus COVID-19 given her fever. This test came back negative. The patient's sepsis continued to improve gradually and her leukocytosis resolved on 06/15. The patient did not wish to continue her treatment and left the hospital AMA on that day prior to being seen by her attending physician. Oral levofloxacin was sent to the pharmacy and the patient was informed to pick it up. DISCHARGE DIAGNOSES: 1. Sepsis. 2. Urinary tract infection. 3. Hypokalemia. Job ID: [id number]
--- NOTE | 2019-06-18 01:19 | PQF ---
KARIE TSAI MOEZ [id number] [facility] [id number] CLINICAL DOCUMENTATION CLARIFICATION FORM: POST DISCHARGE Addendum to original discharge summary date: ____ Late entry note date: __ DATE: 06/18/19 ATTN: Keke Marroquin Please exercise your independent, professional judgment in responding to the clarification form. Clinical indicators are provided on the bottom of this form for your review Can you please further clarify if NSTEMI type 2 is ruled in or ruled out? NSTEMI type 2 [ > ] Ruled in diagnosis [ ] Continue to treat [ ] Resolved [ ] Ruled out diagnosis [ ] Cannot rule out diagnosis [ ] Other diagnosis please specify [ ] Unable to determine In addition, please specify: Present on Admission (POA): [> ] Yes [ ] No [ ] Unable to determine For continuity of documentation, please document condition throughout progress notes and discharge summary. Thank You. CLINICAL INDICATORS - SIGNS / SYMPTOMS / LABS Echocardiogram pg.1- Prolonged QT, abnormal ECG H and P pg4- elevated troponin- likely NSTEMI type 2, due to sepsis Event note pg.1- transferred to telemetry floor considering troponimenia Laboratory- Troponin 0.132HG, 0.055H RISK FACTORS Hypertension- H and P pg.1 CHF- H and P pg.1 Obesity- H and P pg.3 Sepsis- DS pg.1 TREATMENTS Echocardiogram 06/11 Chest X ray 06/11 IV Fluids- MAT Aspirin 325mg IV- MAR Lovenox 30mg IV MAR (This form is maintained as a part of the permanent medical record) 2014 [employer]. All Rights Reserved [email or web address]
== END 2019-06-16 10:10 | disposition left against medical advice (07) | DRG 871 ==
LOC: ERS 21:26 → CCU 23:36 → 2SW 06-13 16:01
PROVIDERS: ADMIT Internal Medicine; ATTEND Internal Medicine
PROC: 8E0ZXY6 Isolation (ICD-10-PCS; principal; 2019-06-12)
DX: A41.9 Sepsis, unspecified organism (principal); I21.A1 Myocardial infarction type 2; N39.0 Urinary tract infection, site not specified; E87.2 Acidosis; I50.32 Chronic diastolic (congestive) heart failure; N17.9 Acute kidney failure, unspecified; R65.20 Severe sepsis without septic shock; E87.6 Hypokalemia; F41.9 Anxiety disorder, unspecified; F32.9 Major depressive disorder, single episode, unspecified; F17.210 Nicotine dependence, cigarettes, uncomplicated; I11.0 Hypertensive heart disease with heart failure; K21.9 Gastro-esophageal reflux disease without esophagitis; E86.0 Dehydration; Z20.828 Contact with and (suspected) exposure to other viral communicable diseases; Z53.29 Procedure and treatment not carried out because of patient's decision for other reasons; Z11.59 Encounter for screening for other viral diseases; Z90.49 Acquired absence of other specified parts of digestive tract; Z68.34 Body mass index [BMI] 34.0-34.9, adult
CPT/HCPCS: 36415; 51701; 71045; 74177; 80048; 80053; 80061; 81003; 81015; 82550; 82553; 83036; 83605; 83630; 83690; 83735; 84484; 85007; 85025; 85027; 87040; 87045; 87046; 87086; 87324; 87427; 87449; 87635; 87804; 93005; 96361; 96365; 96367; 96375; A4353; J0696; J1650; J2270; J2405; J2543; J2550; J3010; J3480; J3490; J7050; Q9967; U0002

== ENCOUNTER 2019-11-02 20:14 | Emergency (ER) | payer MEDICARE, OTHER ==
[2019-11-02] MEDS ORDERED: Ketorolac Tromethamine 30 MG/ML VIAL ONE (21:12)
--- NOTE | 2019-11-02 21:42 | RAD ---
LEFT WRIST THREE VIEWS: History: Wrist pain. No history of trauma. 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 There is an ulna minus variant pr esent. There are no signs of fracture. The bones appear demineralized. IMPRESSION: Arthritic change of the wrist. POS: OFF
== END 2019-11-02 21:40 | disposition home or self-care (01) ==
LOC: ERS 20:14
DX: M19.032 Primary osteoarthritis, left wrist (principal); I10 Essential (primary) hypertension; K21.9 Gastro-esophageal reflux disease without esophagitis; F17.210 Nicotine dependence, cigarettes, uncomplicated; F41.9 Anxiety disorder, unspecified; F32.9 Major depressive disorder, single episode, unspecified; Z79.899 Other long term (current) drug therapy
CPT/HCPCS: 96372; J1885

== ENCOUNTER 2021-10-02 16:08 | Inpatient (IN) | payer OTHER ==
[~2021-10-02 16:08] MED LIST changes: -Iopamidol 370 76% 100 ML VIAL ONE; +Iopamidol-370 76% 500 ML 1 ML ONE
[2021-10-02] MEDS ORDERED: Ondansetron PF 4 MG/2 ML Vial ONE (16:58)
[2021-10-02] MEDS ORDERED: Morphine 4 MG/ML VIAL ONE ×2 (16:58→19:41)
[2021-10-02 17:05] LABS: #Basophils 0.1 thou/uL (0.0-0.2); #Eosinphils 0.2 thou/uL (0.0-0.7); #Lymphocytes 2.3 thou/uL (1.20-3.40); #Neutrophils 11.2 thou/uL (1.40-6.50); %Basophils 0.5 % (0.0-1.0); %Eosinophils 1.4 % (0.0-10.0); %Lymphocytes 15.9 % (21.0-51.0); %Monocytes 6.7 % (0.0-10.0); %Neutrophils 75.5 % (42.0-75.0); Mean Corpuscular HGB CONC 34.3 g/dL (32.0-36.0); Mean Corpuscular Hemoglobin 32.7 pg (27.0-31.0); Mean Corpuscular Volume 95.6 fL (78.0-98.0); Mean Platelet Volume 7.6 fL (7.4-10.4); Platelet Count 395 thou/uL (130-400); RBC Distribution Width 13.2 % (11.5-14.5); Red Blood Cell (RBC) Count 4.58 mill/uL (4.20-5.40); White Blood Cell (WBC) Count 14.8 thou/uL (4.8-10.8)
[2021-10-02 17:38] LABS: ALT (SGPT) 13 U/L (8-55); AST (SGOT) 27 U/L (5-34); Albumin 3.4 g/dL (3.5-5.0); Alkaline Phosphatase 95 U/L (40-110); Anion Gap 18 mmol/L (10-20); BUN (Urea Nitrogen) 20 mg/dL (9.8-20.1); Bilirubin, Total 0.6 mg/dL (0.2-1.2); Calc. Creatinine Clearance 0 mL/min (70-130); Calcium 8.9 mg/dL (7.8-10.44); Carbon Dioxide 27 mmol/L (22-29); Chloride 98 mmol/L (98-107); Estimated GFR 46; Globulin 3.4 g/dL (2.4-3.5); Glucose 114 mg/dL (70-105); Lipase 8 U/L (8-78); Potassium 3.6 mmol/L (3.5-5.1); Protein, Total 6.8 g/dL (6.0-8.3); Sodium 139 mmol/L (136-145)
[2021-10-02 18:32] LABS: Bilirubin Negative (Negative); Blood, Urine Negative (Negative); Clarity Turbid (Clear); Glucose, Urine (Dipstick) Normal (Negative); Ketone, Urine Negative (Negative); Leukocyte Negative Leu/uL (Negative); Nitrite Negative (Negative); Protein, Urine (Dipstick) 20 mg/dL (Neg-Trace); Urobilinogen Normal mg/dL (Less than 2)
[2021-10-02] MEDS ORDERED: Diazepam 10 MG/2 ML SYRINGE IVP SCH (20:15)
[2021-10-02] MEDS ORDERED: Lorazepam (BATCHED) 2 MG/ML SYR ONE (21:21)
[2021-10-02] MEDS: Sodium Chloride 0.9% 1,000 ML IV SCH (22:30)
[2021-10-02] MEDS ORDERED: Heparin 25,000 units/D5W 500 ML IVPB SCH (22:30)
[2021-10-02] MEDS ORDERED: Heparin 10,000 UNITS/ 10 ML VIAL SLOW IVP SCH (22:30)
[2021-10-02 22:48] LABS: Platelet Count 378 thou/uL (130-400)
[2021-10-02] MEDS ORDERED: Heparin 25,000 units/D5W 500 ML ONE (23:50)
[2021-10-03] MEDS ORDERED: Acetaminophen 325 MG TAB PO PRN (01:59)
[2021-10-03] MEDS ORDERED: Ondansetron PF 4 MG/2 ML Vial IVP PRN (01:59)
[2021-10-03 04:04] LABS: Amphetamine Not Detected (NotDetected); Barbiturates Screen Not Detected (NotDetected); Benzodiazepine Screen Not Detected (NotDetected); Cocaine Metabolite Screen Detected (NotDetected); Methadone Not Detected (NotDetected); Methamphetamine Not Detected (NotDetected); Opiate Screen Detected (NotDetected); Oxycodone Screen Not Detected (NotDetected); Phencyclidine (PCP) Not Detected (NotDetected); THC/Cannabinoid Screen Not Detected (NotDetected); Tricyclic Screen Not Detected (NotDetected)
[2021-10-03 04:26] LABS: SARS-CoV-2 NAA Rapid Test Not Detected (NotDetected)
[2021-10-03 04:31] LABS: PTT 175.3 sec (22.9-36.1)
[2021-10-03 04:37] LABS: Anion Gap 17 mmol/L (10-20); BUN (Urea Nitrogen) 16 mg/dL (9.8-20.1); Calc. Creatinine Clearance 97 mL/min (70-130); Carbon Dioxide 23 mmol/L (22-29); Chloride 103 mmol/L (98-107); Estimated GFR 74; Glucose 115 mg/dL (70-105); Magnesium 1.4 mg/dL (1.6-2.6); Sodium 140 mmol/L (136-145)
[2021-10-03 04:50] LABS: Band 15 % (5-11); Hemoglobin 12.8 g/dL (12.0-16.0); Lymphocytes 23 % (21-51); MDiff Complete? YES; Mean Corpuscular HGB CONC 33.3 g/dL (32.0-36.0); Mean Corpuscular Hemoglobin 32.4 pg (27.0-31.0); Mean Corpuscular Volume 97.3 fL (78.0-98.0); Mean Platelet Volume 7.7 fL (7.4-10.4); Monocytes 8 % (0-10); Neutrophil 52 % (42-75); Platelet Count 360 thou/uL (130-400); Platelet Morphology Comment Appears Adequate; RBC Distribution Width 13.4 % (11.5-14.5); RBC Morphology Normal; Reactive Lymphocytes 2 % (0-10); Red Blood Cell (RBC) Count 3.96 mill/uL (4.20-5.40); White Blood Cell (WBC) Count 11.3 thou/uL (4.8-10.8)
[2021-10-03] MEDS ORDERED: Potassium Chloride 40 MEQ in Premix Bag 1 BAG IVPB SCH (09:30)
[2021-10-03] MEDS ORDERED: Magnesium 2 GM/50 ML(in water) 2 GM in Premix Bag 1 BAG IVPB SCH ×2 (09:30→18:00)
[2021-10-03 10:16] VITALS: BMI 33.0
[2021-10-03] MEDS: Sodium Chloride 0.9% 1,000 ML IV SCH ×2 (10:51→21:35)
[2021-10-03] MEDS ORDERED: Iopamidol-370 76% 500 ML 1 ML ONE (15:56)
[2021-10-03] MEDS ORDERED: MD-Gastroview 120 ML BOT ONE (16:05)
[2021-10-03] MEDS ORDERED: Famotidine/PF 20 mg/2ml Vial SLOW IVP SCH (21:00)
[2021-10-04] MEDS: Sodium Chloride 0.9% 1,000 ML IV SCH ×2 (01:18→07:49)
[2021-10-04 07:47] VITALS: BP 138/79; TEMP 97.7
[2021-10-04 08:23] LABS: Chloride 104 mmol/L (98-107); Potassium 4.2 mmol/L (3.5-5.1); Sodium 139 mmol/L (136-145)
[2021-10-04 08:24] LABS: Glucose 106 mg/dL (70-105)
[2021-10-04 08:26] LABS: Anion Gap 20 mmol/L (10-20); Carbon Dioxide 19 mmol/L (22-29)
[2021-10-04 08:28] LABS: Calc. Creatinine Clearance 124 mL/min (70-130); Estimated GFR 101
[2021-10-04 08:29] LABS: BUN (Urea Nitrogen) 11 mg/dL (9.8-20.1)
[2021-10-04 08:30] LABS: Magnesium 1.8 mg/dL (1.6-2.6)
[2021-10-04] MEDS ORDERED: Famotidine 20 MG TAB PO SCH (09:00)
== END 2021-10-04 09:00 | disposition left against medical advice (07) | DRG 389 ==
LOC: ERS 16:08 → ERHOLD 20:50 → IMCU/EMU 10-03 08:36 → 2SW 10-03 18:11
PROVIDERS: ADMIT Hospitalist; ATTEND Hospitalist
PROC: 0D9670Z Drainage of Stomach with Drainage Device, Via Natural or Artificial Opening (ICD-10-PCS; principal; 2021-10-02)
DX: K56.7 Ileus, unspecified (principal); I50.32 Chronic diastolic (congestive) heart failure; N17.9 Acute kidney failure, unspecified; I48.0 Paroxysmal atrial fibrillation; Z20.822 Contact with and (suspected) exposure to COVID-19; K21.9 Gastro-esophageal reflux disease without esophagitis; F41.9 Anxiety disorder, unspecified; F32.A Depression, unspecified; F17.210 Nicotine dependence, cigarettes, uncomplicated; I11.0 Hypertensive heart disease with heart failure; I95.9 Hypotension, unspecified; D72.829 Elevated white blood cell count, unspecified; R79.89 Other specified abnormal findings of blood chemistry; E87.6 Hypokalemia; E83.42 Hypomagnesemia; R19.7 Diarrhea, unspecified; Z90.49 Acquired absence of other specified parts of digestive tract; Z90.710 Acquired absence of both cervix and uterus; Z79.899 Other long term (current) drug therapy; Z82.49 Family history of ischemic heart disease and other diseases of the circulatory system
CPT/HCPCS: 36415; 71045; 71275; 74018; 74019; 74177; 74250; 80048; 80053; 80306; 81003; 83605; 83690; 83735; 83880; 84443; 84484; 85025; 85379; 85730; 93005; 96374; 96375; 96376; J1644; J2060; J2270; J2405; J3360; J3475; J3480; J7050; Q9963; Q9967; U0002

== ENCOUNTER 2022-05-05 06:31 | Emergency (ER) | payer OTHER | END 2022-05-05 08:49 | disposition home or self-care (01) | LOC: ERS 06:31 | DX: M54.2 Cervicalgia (principal); M79.604 Pain in right leg; I10 Essential (primary) hypertension; K21.9 Gastro-esophageal reflux disease without esophagitis; J45.909 Unspecified asthma, uncomplicated; F17.210 Nicotine dependence, cigarettes, uncomplicated | CPT/HCPCS: 72125 ==

== ENCOUNTER 2022-05-20 07:41 | Emergency (ER) | payer OTHER | END 2022-05-20 09:37 | disposition home or self-care (01) | LOC: ERS 07:41 | DX: H10.9 Unspecified conjunctivitis (principal); I51.7 Cardiomegaly; I10 Essential (primary) hypertension; K21.9 Gastro-esophageal reflux disease without esophagitis; F17.210 Nicotine dependence, cigarettes, uncomplicated | CPT/HCPCS: 71045; 93005 ==

== ENCOUNTER 2023-09-01 01:02 | Inpatient (IN) | payer MEDICARE, MEDICAID ==
[2023-09-01 02:02] LABS: #Basophils 0.07 10x3/uL (0.0-0.2); %Basophils 0.6 % (0.0-1.0); %Eosinophils 1.7 % (0.0-10.0); %Monocytes 4.6 % (0.0-10.0); %Neutrophils 65.8 % (42.0-75.0); Hematocrit 43.2 % (36.0-47.0); Hemoglobin 13.6 g/dL (12.0-16.0); Mean Corpuscular HGB CONC 31.5 g/dL (32.0-36.0); Mean Corpuscular Hemoglobin 30.4 pg (27.0-31.0); Mean Corpuscular Volume 96.4 fL (78.0-98.0); Mean Platelet Volume 10.1 fL (7.4-10.4); Platelet Count 310 10x3/uL (130-400); RBC Distribution Width 13.5 % (11.5-14.5); Red Blood Cell (RBC) Count 4.48 mill/uL (4.20-5.40)
[2023-09-01] MEDS ORDERED: Cefepime 2 GM VIAL ONE (02:08)
[2023-09-01] MEDS ORDERED: Sodium Chloride 0.9% 100 ML ONE ×2 (02:08→02:59)
[2023-09-01 02:21] LABS: ALT (SGPT) 10 U/L (8-55); AST (SGOT) 14 U/L (5-34); Albumin 3.4 g/dL (3.4-4.8); Alkaline Phosphatase 120 U/L (40-110); Anion Gap 15 mmol/L (10-20); BUN (Urea Nitrogen) 15 mg/dL (9.8-20.1); Bilirubin, Total 0.3 mg/dL (0.2-1.2); Calc. Creatinine Clearance 0 mL/min (70-130); Calcium 8.7 mg/dL (7.8-10.44); Carbon Dioxide 22 mmol/L (23-31); Chloride 110 mmol/L (98-107); Estimated GFR 79; Globulin 3.5 g/dL (2.4-3.5); Glucose 158 mg/dL (80-115); Potassium 3.3 mmol/L (3.5-5.1); Protein, Total 6.9 g/dL (5.8-8.1); Sodium 144 mmol/L (136-145)
[2023-09-01 02:23] LABS: Troponin I Less than 0.010 ng/mL (< 0.028)
[2023-09-01] MEDS ORDERED: cefTRIAXone (ROCEPHIN) 2 GM VIAL ONE (02:59)
[2023-09-01] MEDS ORDERED: Lorazepam 2 MG/ML VIAL ONE (03:29)
[2023-09-01] MEDS ORDERED: Propofol 1,000 MG/100 ML VIAL IV ONE (03:49)
[2023-09-01] MEDS ORDERED: dilTIAZem 125 MG/25 ML SDV ONE (04:08)
[2023-09-01] MEDS ORDERED: dilTIAZem 25 MG/5 ML VIAL ONE (04:14)
[2023-09-01 05:21] LABS: Actual Bicarbonate (HCO3a) 23.1 mEq/L (22-28); Base Excess (BEa) -6.2 mEq/L (-2.0 to +3.0); Calcium, Ionized (arterial) 1.11 mmol/L (1.12-1.30); Carboxyhemoglobin (COHb) 1.3 gm% (0.0-3.0); Hematocrit-ABG 44 % (36.0-47.0); Hemoglobin (Hb) 14.9 g/dL (12.0-16.0); Potassium - ABG Lab 3.43 mmol/L (3.70-5.30)
[2023-09-01 05:22] LABS: CO2 Tension 61.8 mmHg (35.0-45.0); O2 Tension (PaO2), arterial 54.5 mmHg (> 80.0)
[2023-09-01 05:23] LABS: Puncture Site RBA
[2023-09-01] MEDS ORDERED: Digoxin 0.5 MG/2 ML AMP ONE (05:25)
[2023-09-01] MEDS ORDERED: Ondansetron PF 4 MG/2 ML Vial IVP PRN (05:26)
[2023-09-01] MEDS ORDERED: Ventilator Sedation Protocol 1 EACH FS SCH (05:48)
[2023-09-01 05:52] LABS: Lactic Acid 3.8 mmol/L (0.5-2.2)
[2023-09-01] MEDS ORDERED: Glucagon 1 MG/ML KIT IM PRN ×2 (05:53→16:43)
[2023-09-01] MEDS ORDERED: Dextrose 50% Abboject 50 ML SYRINGE SLOW IVP PRN ×2 (05:53→16:43)
[2023-09-01] MEDS ORDERED: Dextrose 5% in Water 1,000 ML IV PRN ×2 (05:53→16:43)
[2023-09-01] MEDS ORDERED: Electrolyte Replacement Protocol 1 EACH FS SCH (05:54)
[2023-09-01] MEDS ORDERED: Ipratropium/Albuterol 3 ML NEB NEB PRN (05:55)
[2023-09-01] MEDS ORDERED: ANTIBIOTICS IVPB PRN (05:56)
[2023-09-01] MEDS ORDERED: Propofol BOLUS 1,000 MG/100 ML VIAL IV PRN (06:00)
[2023-09-01] MEDS ORDERED: Fentanyl BOLUS 250 ML IVPB PRN (06:00)
[2023-09-01] MEDS ORDERED: Morphine 2 MG/ML VIAL SLOW IVP PRN (06:00)
[2023-09-01] MEDS ORDERED: DISCONTINUE PREVIOUS NARCOTIC PAIN MEDICATIONS AND BENZODIAZEPINES FS SCH (06:00)
[2023-09-01] MEDS ORDERED: fentaNYL 50 mcg/mL 1 mL Vial ONE (06:17)
[2023-09-01 06:28] LABS: Bilirubin Negative (Negative); Blood, Urine Negative (Negative); CAUTI Indications for Culture Alt mental st,lethar; Clarity Clear (Clear); Glucose, Urine (Dipstick) Greater than 1000 mg/dL (Negative); Ketone, Urine Negative (Negative); Leukocyte Negative Leu/uL (Negative); Nitrite Negative (Negative); Protein, Urine (Dipstick) 100 mg/dL (Neg-Trace); RBC/HPF 0-3 HPF (0-3); Specific Gravity, Urine 1.015 (1.002-1.036); Urobilinogen Normal mg/dL (Less than 2)
[2023-09-01 06:30] LABS: Troponin I 0.069 ng/mL (< 0.028)
[2023-09-01 06:36] LABS: Bacteria/HPF 1+ HPF (None Seen)
[2023-09-01 06:37] LABS: Urine Culture Reflex No No
[2023-09-01] MEDS: Fentanyl CADD 100 ML IV SCH (06:49)
[2023-09-01] MEDS: Ipratropium/Albuterol 3 ML NEB NEB SCH ×2 (07:51→10:31)
[2023-09-01] MEDS: Piperacillin/Tazobactam 3.375 GM in Sodium Chloride 0.9% 100 ML IVPB SCH ×2 (07:56→11:36)
[2023-09-01] MEDS: Furosemide 20 MG (2 mL) VIAL SLOW IVP SCH (07:56)
[2023-09-01] MEDS: Pantoprazole 40 MG VIAL IVP SCH (07:56)
[2023-09-01] MEDS: Azithromycin 500 MG in Sodium Chloride 0.9% 250 ML 250 ML IVPB SCH (07:56)
[2023-09-01] MEDS: Apixaban 5 MG TAB PER TUBE SCH (07:57)
[2023-09-01] MEDS: methylPREDNISolone Sod Succ 40 MG VIAL IVP SCH ×2 (07:57→14:09)
[2023-09-01] MEDS: Potassium Bicarbonate/Cit Ac 20 MEQ TAB PER TUBE SCH (07:58)
[2023-09-01] MEDS: Vecuronium 10 MG VIAL IVP PRN (09:04)
[2023-09-01] MEDS: Propofol 1,000 MG/100 ML VIAL IV PRN (09:04)
[2023-09-01] MEDS: NOREPINEPHRINE 8 MG/250 ML-D5W 250 ML IVPB SCH (09:45)
[2023-09-01] MEDS: NOREPINEPHRINE 8 MG/250 ML-D5W 250 ML ONE (09:45)
[2023-09-01 10:09] LABS: SARS-CoV-2 E Target Negative; SARS-CoV-2 N2 Target Negative; SARS-CoV-2 NAA Rapid Test Not Detected (NotDetected); SARS-CoV-2 RdRP gene Negative
[2023-09-01] MEDS: Amiodarone 150 MG, Admixture Fee 1 EACH in Dextrose 5% in Water 100 ML IVPB SCH (11:36)
[2023-09-01] MEDS: Amiodarone 450 MG, Admixture Fee 1 EACH in Dextrose 5% in Water 250 ML IVPB SCH (11:45)
[2023-09-01 12:24] LABS: Legionella Urinary Ag Negative (Negative); Strep pneumo Urine Ag NEGATIVE (NEGATIVE)
[2023-09-01 14:16] LABS: Troponin I 0.119 ng/mL (< 0.028)
[2023-09-01 14:59] LABS: Amphetamine Not Detected (NotDetected); Barbiturates Screen Not Detected (NotDetected); Benzodiazepine Screen Detected (NotDetected); Cocaine Metabolite Screen Not Detected (NotDetected); Methadone Not Detected (NotDetected); Methamphetamine Not Detected (NotDetected); Opiate Screen Not Detected (NotDetected); Oxycodone Screen Not Detected (NotDetected); Phencyclidine (PCP) Not Detected (NotDetected); THC/Cannabinoid Screen Detected (NotDetected); Tricyclic Screen Not Detected (NotDetected)
[2023-09-01] MEDS: Insulin Regular, Human 100 UNIT/ML 10 ML VIAL SC PRN (16:56)
[2023-09-01] MEDS: dilTIAZem 125 MG in Sodium Chloride 0.9% 100 ML IVPB SCH (21:57)
[2023-09-02 01:38] LABS: Influenza A by NAA Not Detected (NotDetected); Influenza B by NAA Not Detected (NotDetected); SARS-CoV-2 NAA Rapid Test Not Detected (NotDetected)
[2023-09-02 04:10] LABS: #Basophils Less than 0.03 10x3/uL (0.0-0.2); #Eosinphils Less than 0.03 10x3/uL (0.0-0.7); %Basophils 0.1 % (0.0-1.0); %Lymphocytes 4.4 % (21.0-51.0); %Monocytes 2.8 % (0.0-10.0); %Neutrophils 92.3 % (42.0-75.0); Hematocrit 40.9 % (36.0-47.0); Hemoglobin 12.8 g/dL (12.0-16.0); Mean Corpuscular HGB CONC 31.3 g/dL (32.0-36.0); Mean Corpuscular Volume 95.8 fL (78.0-98.0); Mean Platelet Volume 10.4 fL (7.4-10.4); Platelet Count 306 10x3/uL (130-400); RBC Distribution Width 13.9 % (11.5-14.5); Red Blood Cell (RBC) Count 4.27 mill/uL (4.20-5.40)
[2023-09-02 04:29] LABS: ALT (SGPT) 14 U/L (8-55); AST (SGOT) 25 U/L (5-34); Albumin 2.8 g/dL (3.4-4.8); Alkaline Phosphatase 73 U/L (40-110); Anion Gap 16 mmol/L (10-20); BUN (Urea Nitrogen) 27 mg/dL (9.8-20.1); Bilirubin, Total 0.6 mg/dL (0.2-1.2); Calc. Creatinine Clearance 60 mL/min (70-130); Calcium 8.1 mg/dL (7.8-10.44); Carbon Dioxide 22 mmol/L (23-31); Chloride 107 mmol/L (98-107); Estimated GFR 39; Globulin 3.6 g/dL (2.4-3.5); Glucose 184 mg/dL (80-115); Magnesium 1.4 mg/dL (1.6-2.6); Potassium 3.7 mmol/L (3.5-5.1); Protein, Total 6.4 g/dL (5.8-8.1); Sodium 141 mmol/L (136-145)
[2023-09-02] MEDS: Magnesium Sulfate In Water 4 GM in Premix 1 BAG IVPB SCH (05:37)
[2023-09-02 07:22] LABS: Actual Bicarbonate (HCO3a) 23.3 mEq/L (22-28); Base Excess (BEa) -2.2 mEq/L (-2.0 to +3.0); CO2 Tension 42.7 mmHg (35.0-45.0); Calcium, Ionized (arterial) 1.08 mmol/L (1.12-1.30); Carboxyhemoglobin (COHb) 0.4 gm% (0.0-3.0); Hematocrit-ABG 40 % (36.0-47.0); Hemoglobin (Hb) 13.6 g/dL (12.0-16.0); O2 Tension (PaO2), arterial 65.3 mmHg (> 80.0); Potassium - ABG Lab 3.51 mmol/L (3.70-5.30); pH, Arterial 7.355 (7.35-7.45)
[2023-09-02 07:53] LABS: ALV-art Gradient 451.725 mmHg (0-20); Puncture Site RRA
[2023-09-02] MEDS: Lorazepam 2 MG/ML VIAL SLOW IVP PRN (12:07)
[2023-09-03 04:30] LABS: #Basophils Less than 0.03 10x3/uL (0.0-0.2); #Eosinphils Less than 0.03 10x3/uL (0.0-0.7); %Basophils 0.1 % (0.0-1.0); %Lymphocytes 4.8 % (21.0-51.0); %Monocytes 4.3 % (0.0-10.0); %Neutrophils 89.9 % (42.0-75.0); Hemoglobin 12.5 g/dL (12.0-16.0)
[2023-09-03 04:50] LABS: ALT (SGPT) 18 U/L (8-55); AST (SGOT) 32 U/L (5-34); Albumin 2.6 g/dL (3.4-4.8); Alkaline Phosphatase 61 U/L (40-110); Anion Gap 15 mmol/L (10-20); BUN (Urea Nitrogen) 27 mg/dL (9.8-20.1); Bilirubin, Total 0.5 mg/dL (0.2-1.2); Calc. Creatinine Clearance 82 mL/min (70-130); Carbon Dioxide 22 mmol/L (23-31); Chloride 107 mmol/L (98-107); Estimated GFR 57; Globulin 3.6 g/dL (2.4-3.5); Glucose 187 mg/dL (80-115); Magnesium 2.8 mg/dL (1.6-2.6); Potassium 3.6 mmol/L (3.5-5.1); Protein, Total 6.2 g/dL (5.8-8.1); Sodium 140 mmol/L (136-145)
[2023-09-03 07:15] LABS: Actual Bicarbonate (HCO3a) 23.3 mEq/L (22-28); Base Excess (BEa) -1.4 mEq/L (-2.0 to +3.0); Calcium, Ionized (arterial) 1.09 mmol/L (1.12-1.30); Carboxyhemoglobin (COHb) 0.8 gm% (0.0-3.0); Hematocrit-ABG 39 % (36.0-47.0); Hemoglobin (Hb) 13.2 g/dL (12.0-16.0); O2 Tension (PaO2), arterial 71.3 mmHg (> 80.0); Potassium - ABG Lab 3.42 mmol/L (3.70-5.30); pH, Arterial 7.394 (7.35-7.45)
[2023-09-03 07:17] LABS: Puncture Site RRA
[2023-09-03 07:29] LABS: Hematocrit 39.4 % (36.0-47.0); Mean Corpuscular HGB CONC 31.7 g/dL (32.0-36.0); Mean Corpuscular Hemoglobin 30.3 pg (27.0-31.0); Mean Corpuscular Volume 95.4 fL (78.0-98.0); Mean Platelet Volume 11.1 fL (7.4-10.4); Platelet Count 308 10x3/uL (130-400); RBC Distribution Width 14.2 % (11.5-14.5); Red Blood Cell (RBC) Count 4.13 mill/uL (4.20-5.40)
[2023-09-03] MEDS: Pregabalin 75 MG CAP PER TUBE SCH (08:41)
[2023-09-03] MEDS: Furosemide 20 MG (2 mL) VIAL SLOW IVP SCH (13:15)
[2023-09-03] MEDS: Potassium Bicarbonate/Cit Ac 20 MEQ TAB PO SCH (16:23)
[2023-09-03] MEDS ORDERED: Potassium Chloride 20 MEQ TAB PO SCH (17:00)
[2023-09-03] MEDS: Albumin 25% 25 GM (100 mL) BOT IVPB SCH (17:11)
[2023-09-03] MEDS: Enoxaparin 100 MG (1 mL) SYRINGE SC SCH (22:04)
[2023-09-04 04:38] LABS: #Basophils 0.03 10x3/uL (0.0-0.2); #Eosinphils Less than 0.03 10x3/uL (0.0-0.7); %Basophils 0.2 % (0.0-1.0); %Lymphocytes 2.9 % (21.0-51.0); %Monocytes 4.9 % (0.0-10.0); Mean Corpuscular HGB CONC 31.6 g/dL (32.0-36.0); Mean Corpuscular Hemoglobin 29.6 pg (27.0-31.0); Mean Corpuscular Volume 93.8 fL (78.0-98.0); Mean Platelet Volume 10.7 fL (7.4-10.4); Platelet Count 333 10x3/uL (130-400); RBC Distribution Width 14.4 % (11.5-14.5); Red Blood Cell (RBC) Count 4.05 mill/uL (4.20-5.40)
[2023-09-04 04:56] LABS: ALT (SGPT) 21 U/L (8-55); AST (SGOT) 20 U/L (5-34); Albumin 3.2 g/dL (3.4-4.8); Alkaline Phosphatase 59 U/L (40-110); Anion Gap 14 mmol/L (10-20); BUN (Urea Nitrogen) 32 mg/dL (9.8-20.1); Bilirubin, Total 0.4 mg/dL (0.2-1.2); Calc. Creatinine Clearance 78 mL/min (70-130); Calcium 8.5 mg/dL (7.8-10.44); Carbon Dioxide 25 mmol/L (23-31); Chloride 107 mmol/L (98-107); Estimated GFR 54; Globulin 3.6 g/dL (2.4-3.5); Glucose 175 mg/dL (80-115); Potassium 3.7 mmol/L (3.5-5.1); Protein, Total 6.8 g/dL (5.8-8.1); Sodium 142 mmol/L (136-145)
[2023-09-04 07:15] LABS: Actual Bicarbonate (HCO3a) 24.7 mEq/L (22-28); Base Excess (BEa) -1.3 mEq/L (-2.0 to +3.0); CO2 Tension 46.2 mmHg (35.0-45.0); Calcium, Ionized (arterial) 1.12 mmol/L (1.12-1.30); Hematocrit-ABG 43 % (36.0-47.0); Hemoglobin (Hb) 14.6 g/dL (12.0-16.0); Potassium - ABG Lab 3.63 mmol/L (3.70-5.30); pH, Arterial 7.346 (7.35-7.45)
[2023-09-04 07:16] LABS: O2 Tension (PaO2), arterial 50.1 mmHg (> 80.0); Puncture Site LRA
[2023-09-04] MEDS: Albuterol 2.5 MG (3 mL) NEB ONE (11:26)
[2023-09-04] MEDS ORDERED: Sodium Chloride 0.9% 500 ML IV SCH (11:45)
[2023-09-04] MEDS: Lactated Ringer's 500 ML IV SCH (12:32)
[2023-09-04] MEDS: Dexmedetomidine In 0.9 % NaCl 100 ML IVPB SCH (12:32)
[2023-09-04] MEDS: Potassium Chloride 20 MEQ TAB PO SCH (17:49)
[2023-09-04] MEDS: Acetaminophen 325 MG TAB PO PRN (17:49)
[2023-09-04] MEDS: methylPREDNISolone Sod Succ 40 MG VIAL IVP SCH (20:29)
[2023-09-05] MEDS: Labetalol HCl 100 MG/20 ML VIAL SLOW IVP PRN ×2 (01:49→22:56)
[2023-09-05 06:07] LABS: Anion Gap 13 mmol/L (10-20); BUN (Urea Nitrogen) 26 mg/dL (9.8-20.1); Calc. Creatinine Clearance 103 mL/min (70-130); Calcium 8.4 mg/dL (7.8-10.44); Carbon Dioxide 30 mmol/L (23-31); Chloride 105 mmol/L (98-107); Estimated GFR 73; Glucose 162 mg/dL (80-115); Magnesium 2.8 mg/dL (1.6-2.6); Potassium 4.6 mmol/L (3.5-5.1); Sodium 143 mmol/L (136-145)
[2023-09-05 07:15] LABS: Actual Bicarbonate (HCO3a) 30.4 mEq/L (22-28); Base Excess (BEa) 5.7 mEq/L (-2.0 to +3.0); CO2 Tension 44.5 mmHg (35.0-45.0); Calcium, Ionized (arterial) 1.08 mmol/L (1.12-1.30); Carboxyhemoglobin (COHb) 0.8 gm% (0.0-3.0); Hematocrit-ABG 40 % (36.0-47.0); Hemoglobin (Hb) 13.7 g/dL (12.0-16.0); Potassium - ABG Lab 4.32 mmol/L (3.70-5.30); pH, Arterial 7.452 (7.35-7.45)
[2023-09-05 07:16] LABS: ALV-art Gradient 174.575 mmHg (0-20); Puncture Site RRA
[2023-09-05] MEDS: Potassium Bicarbonate/Cit Ac 20 MEQ TAB PER TUBE SCH ×2 (09:38→17:50)
[2023-09-05] MEDS: Furosemide 40 MG (4 mL) VIAL SLOW IVP SCH (10:21)
[2023-09-05] MEDS: Nitroglycerin 2% Ointment 1 INCH/1 GM Packet TOP SCH (10:21)
[2023-09-05] MEDS: Meropenem 1 GM in Sodium Chloride 0.9% 100 ML IVPB SCH ×2 (13:21→20:00)
[2023-09-05] MEDS: Acetaminophen 650 MG/20.3 ML UDCUP PO PRN (13:24)
[2023-09-05] MEDS: Polyethylene Glycol 3350 17 GM Packet PO SCH (13:24)
[2023-09-05] MEDS: Metoprolol Tartrate 25 MG TAB PO SCH (20:00)
[2023-09-05] MEDS: Senokot S 8.6-50 MG TAB PO SCH (21:02)
[2023-09-05] MEDS: Amlodipine 10 MG TAB PO SCH (21:30)
[2023-09-05] MEDS: Metoprolol Tartrate 5 MG (5 mL) VIAL IVP SCH (23:38)
[2023-09-06] MEDS ORDERED: dilTIAZem 125 MG in Sodium Chloride 0.9% 100 ML IVPB SCH (02:30)
[2023-09-06] MEDS ORDERED: niCARdipine 40MG In NaCl 40 MG/200 ML BAG IVPB SCH (02:45)
[2023-09-06] MEDS ORDERED: niCARdipine 50 MG, Admixture Fee 1 EACH in Sodium Chloride 0.9% 250 ML 230 ML IV SCH (03:00)
[2023-09-06 04:48] LABS: Anion Gap 13 mmol/L (10-20); BUN (Urea Nitrogen) 22 mg/dL (9.8-20.1); Calc. Creatinine Clearance 108 mL/min (70-130); Calcium 8.3 mg/dL (7.8-10.44); Carbon Dioxide 34 mmol/L (23-31); Chloride 100 mmol/L (98-107); Estimated GFR 77; Glucose 167 mg/dL (80-115); Magnesium 2.4 mg/dL (1.6-2.6); Potassium 4.5 mmol/L (3.5-5.1); Sodium 142 mmol/L (136-145)
[2023-09-06 05:32] LABS: #Basophils 0.03 10x3/uL (0.0-0.2); #Eosinphils Less than 0.03 10x3/uL (0.0-0.7); %Basophils 0.2 % (0.0-1.0); %Lymphocytes 6.5 % (21.0-51.0); %Monocytes 7.1 % (0.0-10.0); %Neutrophils 84.5 % (42.0-75.0); Hemoglobin 12.5 g/dL (12.0-16.0); Mean Corpuscular HGB CONC 31.3 g/dL (32.0-36.0); Mean Corpuscular Hemoglobin 29.6 pg (27.0-31.0); Mean Corpuscular Volume 94.8 fL (78.0-98.0); Mean Platelet Volume 10.6 fL (7.4-10.4); Platelet Count 296 10x3/uL (130-400); RBC Distribution Width 14.2 % (11.5-14.5); Red Blood Cell (RBC) Count 4.22 mill/uL (4.20-5.40)
[2023-09-06 05:44] VITALS: BMI 36.8
[2023-09-06] MEDS: Polyethylene Glycol 3350 17 GM Packet PO SCH (08:10)
[2023-09-06] MEDS: Amlodipine 10 MG TAB PO SCH (09:00)
[2023-09-06] MEDS: Carvedilol 6.25 MG TAB PO SCH ×2 (10:25→16:30)
[2023-09-06] MEDS: Lisinopril 10 MG TAB PO SCH (10:25)
[2023-09-06] MEDS: Senokot S 8.6-50 MG TAB PER TUBE SCH (20:07)
[2023-09-06] MEDS: Lisinopril 10 MG TAB PER TUBE SCH (20:08)
[2023-09-06] MEDS: Amiodarone 450 MG, Admixture Fee 1 EACH in Dextrose 5% in Water 250 ML IVPB SCH (20:08)
[2023-09-07] MEDS: Dexmedetomidine 1,000 MCG in NS 250 mL IVPB SCH (03:30)
[2023-09-07 03:44] LABS: #Basophils 0.03 10x3/uL (0.0-0.2); #Eosinphils Less than 0.03 10x3/uL (0.0-0.7); %Basophils 0.1 % (0.0-1.0); %Lymphocytes 15.5 % (21.0-51.0); %Monocytes 9.5 % (0.0-10.0); Hematocrit 38.5 % (36.0-47.0); Mean Corpuscular HGB CONC 31.2 g/dL (32.0-36.0); Mean Corpuscular Hemoglobin 29.4 pg (27.0-31.0); Mean Corpuscular Volume 94.4 fL (78.0-98.0); Mean Platelet Volume 10.1 fL (7.4-10.4); Platelet Count 306 10x3/uL (130-400); RBC Distribution Width 14.1 % (11.5-14.5); Red Blood Cell (RBC) Count 4.08 mill/uL (4.20-5.40)
[2023-09-07 03:56] LABS: Prothrombin Time 13.3 sec (12.0-14.7)
[2023-09-07 03:57] LABS: PTT 27.6 sec (22.9-36.1)
[2023-09-07 04:02] LABS: Anion Gap 14 mmol/L (10-20); BUN (Urea Nitrogen) 20 mg/dL (9.8-20.1); Calc. Creatinine Clearance 125 mL/min (70-130); Calcium 8.4 mg/dL (7.8-10.44); Carbon Dioxide 33 mmol/L (23-31); Chloride 96 mmol/L (98-107); Estimated GFR 91; Glucose 130 mg/dL (80-115); Magnesium 2.5 mg/dL (1.6-2.6); Potassium 4.3 mmol/L (3.5-5.1); Sodium 139 mmol/L (136-145)
[2023-09-07] MEDS: methylPREDNISolone Sod Succ 40 MG VIAL IVP SCH (08:00)
[2023-09-07] MEDS: Sodium Chloride 0.9% 500 ML IVPB SCH (09:00)
[2023-09-07] MEDS ORDERED: NOREPINEPHRINE 8 MG/250 ML-D5W 250 ML IVPB SCH (09:00)
[2023-09-07] MEDS: NOREPINEPHRINE 8 MG/250 ML-D5W 250 ML ONE (09:00)
[2023-09-07] MEDS: Sodium Chloride 0.9% 500 ML IV SCH (11:15)
[2023-09-07] MEDS: Metoprolol Tartrate 5 MG (5 mL) VIAL IVP SCH (20:44)
[2023-09-07] MEDS: Lisinopril 10 MG TAB PER TUBE SCH (21:41)
[2023-09-07] MEDS: Nitroglycerin 2% Ointment 1 INCH/1 GM Packet TOP SCH (21:42)
[2023-09-07] MEDS ORDERED: niCARdipine 40MG In NaCl 40 MG/200 ML BAG IVPB SCH (23:00)
[2023-09-07] MEDS: cloNIDine 0.2 MG TAB PER TUBE SCH (23:11)
[2023-09-07] MEDS: Scopolamine 1 mg/72 hour Patch TD SCH (23:11)
[2023-09-07] MEDS: niCARdipine 50 MG, Admixture Fee 1 EACH in Sodium Chloride 0.9% 250 ML 230 ML IV SCH (23:37)
[2023-09-08 04:36] LABS: #Basophils Less than 0.03 10x3/uL (0.0-0.2); %Basophils 0.1 % (0.0-1.0); %Eosinophils 0.7 % (0.0-10.0); %Lymphocytes 16.2 % (21.0-51.0); %Monocytes 10.1 % (0.0-10.0); %Neutrophils 70.4 % (42.0-75.0); Hematocrit 36.9 % (36.0-47.0); Hemoglobin 11.7 g/dL (12.0-16.0); Mean Corpuscular HGB CONC 31.7 g/dL (32.0-36.0); Mean Corpuscular Hemoglobin 29.9 pg (27.0-31.0); Mean Corpuscular Volume 94.4 fL (78.0-98.0); Mean Platelet Volume 10.2 fL (7.4-10.4); Platelet Count 299 10x3/uL (130-400); Red Blood Cell (RBC) Count 3.91 mill/uL (4.20-5.40)
[2023-09-08 04:52] LABS: Anion Gap 11 mmol/L (10-20); BUN (Urea Nitrogen) 21 mg/dL (9.8-20.1); Calc. Creatinine Clearance 137 mL/min (70-130); Calcium 8.7 mg/dL (7.8-10.44); Carbon Dioxide 29 mmol/L (23-31); Chloride 100 mmol/L (98-107); Estimated GFR 99; Glucose 147 mg/dL (80-115); Potassium 3.9 mmol/L (3.5-5.1); Sodium 136 mmol/L (136-145)
[2023-09-08] MEDS: Magnesium 2 GM/50 ML(in water) 2 GM in Premix 1 BAG IVPB SCH (07:52)
[2023-09-08] MEDS ORDERED: Glycopyrrolate 0.2 MG/ML 5 ML SYRINGE SLOW IVP PRN (22:35)
[2023-09-08] MEDS: Venlafaxine 75 MG TAB PO SCH (23:13)
[2023-09-09] MEDS: Venlafaxine HCl XR 150 MG CAP PO SCH (08:18)
[2023-09-09] MEDS: Metoprolol Tartrate 25 MG TAB PO SCH (08:18)
[2023-09-09] MEDS: hydrOXYzine 25 MG TAB PO SCH (08:18)
[2023-09-09] MEDS: Amlodipine 10 MG TAB PO SCH (09:15)
[2023-09-09] MEDS: Haloperidol Lactate 5 MG/ML VIAL IM SCH ×2 (10:26→20:33)
[2023-09-09] MEDS: hydrALAZINE 20 MG/ML VIAL SLOW IVP PRN (18:19)
[2023-09-09] MEDS: Venlafaxine 75 MG TAB PER TUBE SCH (21:05)
[2023-09-10 06:48] LABS: #Basophils Less than 0.03 10x3/uL (0.0-0.2); %Basophils 0.1 % (0.0-1.0); %Eosinophils 1.1 % (0.0-10.0); %Lymphocytes 15.9 % (21.0-51.0); %Monocytes 9.9 % (0.0-10.0); %Neutrophils 71.6 % (42.0-75.0); Hematocrit 35.3 % (36.0-47.0); Hemoglobin 11.4 g/dL (12.0-16.0); Mean Corpuscular HGB CONC 32.3 g/dL (32.0-36.0); Mean Corpuscular Hemoglobin 29.9 pg (27.0-31.0); Mean Corpuscular Volume 92.7 fL (78.0-98.0); Mean Platelet Volume 10.3 fL (7.4-10.4); Platelet Count 256 10x3/uL (130-400); RBC Distribution Width 13.7 % (11.5-14.5); Red Blood Cell (RBC) Count 3.81 mill/uL (4.20-5.40)
[2023-09-10 07:02] LABS: Anion Gap 9 mmol/L (10-20); BUN (Urea Nitrogen) 21 mg/dL (9.8-20.1); Calc. Creatinine Clearance 148 mL/min (70-130); Calcium 8.7 mg/dL (7.8-10.44); Carbon Dioxide 27 mmol/L (23-31); Chloride 102 mmol/L (98-107); Estimated GFR 100; Glucose 104 mg/dL (80-115); Potassium 3.3 mmol/L (3.5-5.1); Sodium 135 mmol/L (136-145)
[2023-09-10] MEDS: Potassium Bicarbonate/Cit Ac 20 MEQ TAB PER TUBE SCH (10:39)
[2023-09-10] MEDS: Magnesium Sulfate In Water 4 GM in Premix 1 BAG IVPB SCH (11:15)
[2023-09-10] MEDS: Amiodarone 200 MG TAB PO SCH (15:21)
[2023-09-10] MEDS: Apixaban 5 MG TAB PO SCH (22:52)
[2023-09-11 05:12] LABS: Magnesium 2.3 mg/dL (1.6-2.6)
[2023-09-11 08:26] LABS: Anion Gap 16 mmol/L (10-20); BUN (Urea Nitrogen) 22 mg/dL (9.8-20.1); Calc. Creatinine Clearance 164 mL/min (70-130); Calcium 8.3 mg/dL (7.8-10.44); Carbon Dioxide 19 mmol/L (23-31); Chloride 106 mmol/L (98-107); Estimated GFR 103; Glucose 114 mg/dL (80-115); Potassium 4.3 mmol/L (3.5-5.1); Sodium 137 mmol/L (136-145)
[2023-09-11 09:02] LABS: #Basophils Less than 0.03 10x3/uL (0.0-0.2); %Basophils 0.1 % (0.0-1.0); %Eosinophils 1.9 % (0.0-10.0); %Lymphocytes 9.9 % (21.0-51.0); %Monocytes 9.4 % (0.0-10.0); %Neutrophils 77.6 % (42.0-75.0); Hematocrit 34.2 % (36.0-47.0); Hemoglobin 10.8 g/dL (12.0-16.0); Mean Corpuscular HGB CONC 31.6 g/dL (32.0-36.0); Mean Corpuscular Hemoglobin 29.8 pg (27.0-31.0); Mean Corpuscular Volume 94.2 fL (78.0-98.0); Mean Platelet Volume 10.1 fL (7.4-10.4); Platelet Count 251 10x3/uL (130-400); RBC Distribution Width 13.9 % (11.5-14.5); Red Blood Cell (RBC) Count 3.63 mill/uL (4.20-5.40)
[2023-09-11] MEDS: Furosemide 20 MG (2 mL) VIAL SLOW IVP SCH (10:12)
[2023-09-11] MEDS: Furosemide 40 MG (4 mL) VIAL SLOW IVP SCH (13:27)
[2023-09-11] MEDS: Digoxin 0.5 MG/2 ML AMP SLOW IVP SCH (14:45)
[2023-09-11] MEDS: dilTIAZem 25 MG/5 ML VIAL SLOW IVP SCH (16:43)
[2023-09-11] MEDS: dilTIAZem 125 MG in Sodium Chloride 0.9% 100 ML IVPB SCH (16:44)
[2023-09-12 04:26] LABS: #Basophils 0.03 10x3/uL (0.0-0.2); %Basophils 0.2 % (0.0-1.0); %Eosinophils 1.3 % (0.0-10.0); %Lymphocytes 11.2 % (21.0-51.0); %Monocytes 9.5 % (0.0-10.0); %Neutrophils 76.7 % (42.0-75.0); Hematocrit 35.7 % (36.0-47.0); Hemoglobin 11.4 g/dL (12.0-16.0); Mean Corpuscular HGB CONC 31.9 g/dL (32.0-36.0); Mean Corpuscular Hemoglobin 29.5 pg (27.0-31.0); Mean Corpuscular Volume 92.2 fL (78.0-98.0); Mean Platelet Volume 10.2 fL (7.4-10.4); Platelet Count 312 10x3/uL (130-400); Red Blood Cell (RBC) Count 3.87 mill/uL (4.20-5.40)
[2023-09-12 06:38] LABS: Anion Gap 12 mmol/L (10-20); BUN (Urea Nitrogen) 19 mg/dL (9.8-20.1); Calc. Creatinine Clearance 151 mL/min (70-130); Carbon Dioxide 25 mmol/L (23-31); Chloride 107 mmol/L (98-107); Estimated GFR 102; Glucose 86 mg/dL (80-115); Potassium 3.3 mmol/L (3.5-5.1); Sodium 141 mmol/L (136-145)
[2023-09-12] MEDS: Potassium Bicarbonate/Cit Ac 20 MEQ TAB PER TUBE SCH (08:32)
[2023-09-12] MEDS: Digoxin 0.5 MG/2 ML AMP SLOW IVP SCH ×2 (08:32→10:48)
[2023-09-12] MEDS: Furosemide 40 MG (4 mL) VIAL SLOW IVP SCH (09:33)
[2023-09-12 17:29] LABS: Potassium 3.7 mmol/L (3.5-5.1)
[2023-09-13 04:10] LABS: #Basophils 0.04 10x3/uL (0.0-0.2); %Basophils 0.2 % (0.0-1.0); %Eosinophils 2.7 % (0.0-10.0); %Lymphocytes 12.2 % (21.0-51.0); %Neutrophils 72.8 % (42.0-75.0); Hematocrit 37.1 % (36.0-47.0); Hemoglobin 11.6 g/dL (12.0-16.0); Mean Corpuscular HGB CONC 31.3 g/dL (32.0-36.0); Mean Corpuscular Hemoglobin 29.6 pg (27.0-31.0); Mean Corpuscular Volume 94.6 fL (78.0-98.0); Mean Platelet Volume 10.1 fL (7.4-10.4); Platelet Count 357 10x3/uL (130-400); RBC Distribution Width 14.2 % (11.5-14.5); Red Blood Cell (RBC) Count 3.92 mill/uL (4.20-5.40)
[2023-09-13 04:25] LABS: Digoxin 0.55 ng/mL (0.8-2.0)
[2023-09-13 04:27] LABS: Anion Gap 12 mmol/L (10-20); BUN (Urea Nitrogen) 16 mg/dL (9.8-20.1); Calc. Creatinine Clearance 141 mL/min (70-130); Calcium 8.9 mg/dL (7.8-10.44); Carbon Dioxide 29 mmol/L (23-31); Chloride 105 mmol/L (98-107); Estimated GFR 100; Glucose 106 mg/dL (80-115); Magnesium 1.9 mg/dL (1.6-2.6); Potassium 3.7 mmol/L (3.5-5.1); Sodium 142 mmol/L (136-145)
[2023-09-13] MEDS: Magnesium 2 GM/50 ML(in water) 2 GM in Premix 1 BAG IVPB SCH (07:42)
[2023-09-13] MEDS: Digoxin 0.5 MG/2 ML AMP SLOW IVP SCH (08:17)
[2023-09-13] MEDS: Lansoprazole 30 MG/10 ML UDCUP PER TUBE SCH (08:19)
[2023-09-13] MEDS: Cetirizine HCl 10 MG TAB PO SCH (10:17)
[2023-09-14 07:12] LABS: #Basophils 0.08 10x3/uL (0.0-0.2); %Basophils 0.4 % (0.0-1.0); %Lymphocytes 8.8 % (21.0-51.0); %Monocytes 9.7 % (0.0-10.0); %Neutrophils 76.8 % (42.0-75.0); Hematocrit 37.2 % (36.0-47.0); Hemoglobin 11.8 g/dL (12.0-16.0); Mean Corpuscular HGB CONC 31.7 g/dL (32.0-36.0); Mean Corpuscular Hemoglobin 30.3 pg (27.0-31.0); Mean Corpuscular Volume 95.6 fL (78.0-98.0); Platelet Count 337 10x3/uL (130-400); RBC Distribution Width 14.3 % (11.5-14.5); Red Blood Cell (RBC) Count 3.89 mill/uL (4.20-5.40)
[2023-09-14 07:27] LABS: Anion Gap 10 mmol/L (10-20); BUN (Urea Nitrogen) 14 mg/dL (9.8-20.1); Calc. Creatinine Clearance 141 mL/min (70-130); Calcium 8.7 mg/dL (7.8-10.44); Carbon Dioxide 28 mmol/L (23-31); Chloride 106 mmol/L (98-107); Estimated GFR 100; Glucose 111 mg/dL (80-115); Potassium 4.1 mmol/L (3.5-5.1); Sodium 140 mmol/L (136-145)
[2023-09-15 07:43] LABS: #Basophils 0.05 10x3/uL (0.0-0.2); %Basophils 0.3 % (0.0-1.0); %Eosinophils 3.7 % (0.0-10.0); %Monocytes 10.9 % (0.0-10.0); %Neutrophils 73.2 % (42.0-75.0); Hematocrit 35.6 % (36.0-47.0); Hemoglobin 11.3 g/dL (12.0-16.0); Mean Corpuscular HGB CONC 31.7 g/dL (32.0-36.0); Mean Corpuscular Hemoglobin 30.1 pg (27.0-31.0); Mean Corpuscular Volume 94.9 fL (78.0-98.0); Mean Platelet Volume 9.8 fL (7.4-10.4); Platelet Count 340 10x3/uL (130-400); RBC Distribution Width 14.3 % (11.5-14.5); Red Blood Cell (RBC) Count 3.75 mill/uL (4.20-5.40)
[2023-09-15 08:32] LABS: Anion Gap 10 mmol/L (10-20); BUN (Urea Nitrogen) 9 mg/dL (9.8-20.1); Calc. Creatinine Clearance 160 mL/min (70-130); Calcium 8.8 mg/dL (7.8-10.44); Carbon Dioxide 27 mmol/L (23-31); Chloride 104 mmol/L (98-107); Estimated GFR 104; Glucose 124 mg/dL (80-115); Potassium 3.7 mmol/L (3.5-5.1); Sodium 137 mmol/L (136-145)
[2023-09-15] MEDS: Furosemide 20 MG (2 mL) VIAL SLOW IVP SCH (08:32)
[2023-09-15 08:33] LABS: Digoxin 0.64 ng/mL (0.8-2.0)
[2023-09-15] MEDS ORDERED: Ipratropium/Albuterol 3 ML NEB NEB PRN (14:18)
[2023-09-16 08:07] LABS: #Basophils 0.06 10x3/uL (0.0-0.2); %Basophils 0.5 % (0.0-1.0); %Eosinophils 4.2 % (0.0-10.0); %Lymphocytes 13.6 % (21.0-51.0); %Neutrophils 70.9 % (42.0-75.0); Hematocrit 39.7 % (36.0-47.0); Hemoglobin 12.5 g/dL (12.0-16.0); Mean Corpuscular HGB CONC 31.5 g/dL (32.0-36.0); Mean Corpuscular Volume 95.2 fL (78.0-98.0); Platelet Count 383 10x3/uL (130-400); RBC Distribution Width 14.1 % (11.5-14.5); Red Blood Cell (RBC) Count 4.17 mill/uL (4.20-5.40)
[2023-09-16 08:28] LABS: Anion Gap 12 mmol/L (10-20); BUN (Urea Nitrogen) 12 mg/dL (9.8-20.1); Calc. Creatinine Clearance 143 mL/min (70-130); Calcium 9.3 mg/dL (7.8-10.44); Carbon Dioxide 29 mmol/L (23-31); Chloride 102 mmol/L (98-107); Estimated GFR 102; Glucose 123 mg/dL (80-115); Potassium 3.7 mmol/L (3.5-5.1); Sodium 139 mmol/L (136-145)
[2023-09-16] MEDS: Furosemide 20 MG TAB PO SCH (14:21)
[2023-09-16] MEDS: Digoxin 0.125 MG TAB PER TUBE SCH (14:22)
[2023-09-16] MEDS: Furosemide 20 MG TAB PER TUBE SCH (16:29)
[2023-09-16] MEDS: Digoxin 0.25 MG TAB PER TUBE SCH (16:29)
[2023-09-16] MEDS: Furosemide 20 MG (2 mL) VIAL SLOW IVP SCH (17:29)
[2023-09-16] MEDS: Digoxin 0.5 MG/2 ML AMP SLOW IVP SCH (17:32)
[2023-09-17 05:29] LABS: Anion Gap 14 mmol/L (10-20); BUN (Urea Nitrogen) 11 mg/dL (9.8-20.1); Calc. Creatinine Clearance 138 mL/min (70-130); Calcium 9.3 mg/dL (7.8-10.44); Carbon Dioxide 28 mmol/L (23-31); Chloride 102 mmol/L (98-107); Estimated GFR 101; Glucose 81 mg/dL (80-115); Magnesium 1.9 mg/dL (1.6-2.6); Potassium 3.2 mmol/L (3.5-5.1); Sodium 141 mmol/L (136-145)
[2023-09-17] MEDS ORDERED: Furosemide 40 MG TAB PER TUBE SCH (07:30)
[2023-09-17] MEDS ORDERED: Furosemide 40 MG TAB PO SCH (07:30)
[2023-09-17] MEDS ORDERED: Digoxin 0.25 MG TAB PER TUBE SCH (09:00)
[2023-09-17] MEDS ORDERED: Furosemide 20 MG (2 mL) VIAL SLOW IVP SCH (09:00)
[2023-09-17 11:19] VITALS: BMI 34.1
[2023-09-17] MEDS: Potassium Chloride 20 MEQ in Premix 1 BAG IVPB SCH (12:01)
[2023-09-17] MEDS: Magnesium 2 GM/50 ML(in water) 2 GM in Premix 1 BAG IVPB SCH (12:04)
[2023-09-17] MEDS: Potassium Bicarbonate/Cit Ac 20 MEQ TAB PER TUBE SCH (12:04)
[2023-09-17] MEDS: Digoxin 0.5 MG/2 ML AMP SLOW IVP SCH (12:05)
[2023-09-17] MEDS: Loratadine 10 MG TAB PO SCH (14:02)
[2023-09-17] MEDS: Amiodarone 200 MG TAB PO SCH (21:29)
[2023-09-18 05:48] LABS: #Basophils 0.11 10x3/uL (0.0-0.2); %Basophils 0.9 % (0.0-1.0); %Eosinophils 3.2 % (0.0-10.0); %Lymphocytes 22.7 % (21.0-51.0); %Monocytes 9.3 % (0.0-10.0); %Neutrophils 63.4 % (42.0-75.0); Hematocrit 42.4 % (36.0-47.0); Hemoglobin 13.5 g/dL (12.0-16.0); Mean Corpuscular HGB CONC 31.8 g/dL (32.0-36.0); Mean Corpuscular Hemoglobin 28.8 pg (27.0-31.0); Mean Corpuscular Volume 90.6 fL (78.0-98.0); Mean Platelet Volume 10.3 fL (7.4-10.4); Platelet Count 393 10x3/uL (130-400); RBC Distribution Width 13.9 % (11.5-14.5); Red Blood Cell (RBC) Count 4.68 mill/uL (4.20-5.40)
[2023-09-18 05:54] LABS: Anion Gap 14 mmol/L (10-20); BUN (Urea Nitrogen) 11 mg/dL (9.8-20.1); Calc. Creatinine Clearance 124 mL/min (70-130); Calcium 8.8 mg/dL (7.8-10.44); Carbon Dioxide 25 mmol/L (23-31); Chloride 104 mmol/L (98-107); Estimated GFR 98; Glucose 84 mg/dL (80-115); Magnesium 2.1 mg/dL (1.6-2.6); Potassium 3.4 mmol/L (3.5-5.1); Sodium 140 mmol/L (136-145)
[2023-09-18 06:03] LABS: Digoxin 0.99 ng/mL (0.8-2.0)
[2023-09-18] MEDS: Potassium Bicarbonate/Cit Ac 20 MEQ TAB PER TUBE SCH (09:48)
[2023-09-18] MEDS: Potassium Chloride 20 MEQ TAB PO SCH ×2 (09:54→17:25)
[2023-09-18] MEDS: Magnesium 2 GM/50 ML(in water) 2 GM in Premix 1 BAG IVPB SCH (13:29)
[2023-09-19 04:54] LABS: #Basophils 0.13 10x3/uL (0.0-0.2); %Basophils 1.2 % (0.0-1.0); %Eosinophils 3.3 % (0.0-10.0); %Lymphocytes 25.2 % (21.0-51.0); %Monocytes 9.6 % (0.0-10.0); %Neutrophils 60.1 % (42.0-75.0); Hematocrit 38.7 % (36.0-47.0); Hemoglobin 12.2 g/dL (12.0-16.0); Mean Corpuscular HGB CONC 31.5 g/dL (32.0-36.0); Mean Corpuscular Hemoglobin 29.2 pg (27.0-31.0); Mean Corpuscular Volume 92.6 fL (78.0-98.0); Mean Platelet Volume 9.7 fL (7.4-10.4); Platelet Count 404 10x3/uL (130-400); RBC Distribution Width 13.9 % (11.5-14.5); Red Blood Cell (RBC) Count 4.18 mill/uL (4.20-5.40)
[2023-09-19 05:25] LABS: Anion Gap 10 mmol/L (10-20); BUN (Urea Nitrogen) 13 mg/dL (9.8-20.1); Calc. Creatinine Clearance 122 mL/min (70-130); Calcium 8.9 mg/dL (7.8-10.44); Carbon Dioxide 28 mmol/L (23-31); Chloride 109 mmol/L (98-107); Estimated GFR 98; Glucose 102 mg/dL (80-115); Magnesium 1.9 mg/dL (1.6-2.6); Potassium 3.8 mmol/L (3.5-5.1); Sodium 143 mmol/L (136-145)
[2023-09-19] MEDS ORDERED: PROPOFOL 200 MG/20 ML VIAL ONE (08:41)
[2023-09-19] MEDS ORDERED: Magnesium Sulfate 4 GM in Sodium Chloride 0.9% 250 ML 250 ML IVPB SCH (09:00)
[2023-09-19] MEDS: Potassium Chloride 20 MEQ TAB PO SCH (09:37)
[2023-09-19] MEDS: Magnesium 2 GM/50 ML(in water) 2 GM in Premix 1 BAG IVPB SCH ×2 (09:37→11:47)
[2023-09-19] MEDS: Lisinopril 10 MG TAB PO SCH (11:46)
[2023-09-19] MEDS: Melatonin 3 MG TAB PO PRN (21:04)
[2023-09-19] MEDS: traMADol HCl 50 MG TAB PO SCH (21:04)
[2023-09-19] MEDS: Lidocaine 2% Viscous Solution 10 ML, Aluminum & Magnesium Hydroxide 30 ML SSW SCH (23:56)
[2023-09-20 05:39] LABS: %Basophils 0.9 % (0.0-1.0); %Eosinophils 2.9 % (0.0-10.0); %Lymphocytes 29.1 % (21.0-51.0); %Monocytes 7.2 % (0.0-10.0); %Neutrophils 59.5 % (42.0-75.0); Hematocrit 40.6 % (36.0-47.0); Hemoglobin 12.4 g/dL (12.0-16.0); Mean Corpuscular HGB CONC 30.5 g/dL (32.0-36.0); Mean Corpuscular Hemoglobin 29.5 pg (27.0-31.0); Mean Corpuscular Volume 96.7 fL (78.0-98.0); Mean Platelet Volume 9.7 fL (7.4-10.4); Platelet Count 431 10x3/uL (130-400); RBC Distribution Width 14.2 % (11.5-14.5)
[2023-09-20 06:09] LABS: Anion Gap 14 mmol/L (10-20); BUN (Urea Nitrogen) 14 mg/dL (9.8-20.1); Calc. Creatinine Clearance 110 mL/min (70-130); Calcium 9.1 mg/dL (7.8-10.44); Carbon Dioxide 25 mmol/L (23-31); Chloride 108 mmol/L (98-107); Estimated GFR 88; Glucose 92 mg/dL (80-115); Magnesium 2.5 mg/dL (1.6-2.6); Potassium 4.1 mmol/L (3.5-5.1); Sodium 143 mmol/L (136-145)
[2023-09-20] MEDS ORDERED: Potassium Chloride 10 MEQ TAB PO SCH (08:00)
[2023-09-20] MEDS: Lisinopril 10 MG TAB PO SCH (11:50)
[2023-09-20] MEDS: Amiodarone 200 MG TAB PO SCH (11:51)
[2023-09-20 13:16] VITALS: TEMP 97.6
[2023-09-20 16:22] VITALS: BP 169/79
== END 2023-09-20 16:00 | disposition left against medical advice (07) | DRG 870 ==
LOC: ERS 01:02 → CCU 06:30 → IMCU/EMU 09-13 11:12 → 2NO 09-16 15:27
PROVIDERS: ADMIT Internal Medicine; ATTEND Family Medicine
PROC: 06HY33Z Insertion of Infusion Device into Lower Vein, Percutaneous Approach (ICD-10-PCS; principal; 2023-09-01)
PROC: 5A1955Z Respiratory Ventilation, Greater than 96 Consecutive Hours (ICD-10-PCS; 2023-09-01)
PROC: 0T9B70Z Drainage of Bladder with Drainage Device, Via Natural or Artificial Opening (ICD-10-PCS; 2023-09-01)
PROC: 0BH17EZ Insertion of Endotracheal Airway into Trachea, Via Natural or Artificial Opening (ICD-10-PCS; 2023-09-01)
PROC: 0BJ08ZZ Inspection of Tracheobronchial Tree, Via Natural or Artificial Opening Endoscopic (ICD-10-PCS; 2023-09-01)
PROC: 4A133R1 Monitoring of Arterial Saturation, Peripheral, Percutaneous Approach (ICD-10-PCS; 2023-09-01)
PROC: 3E03329 Introduction of Other Anti-infective into Peripheral Vein, Percutaneous Approach (ICD-10-PCS; 2023-09-01)
PROC: 3E043XZ Introduction of Vasopressor into Central Vein, Percutaneous Approach (ICD-10-PCS; 2023-09-01)
PROC: 30233J1 Transfusion of Nonautologous Serum Albumin into Peripheral Vein, Percutaneous Approach (ICD-10-PCS; 2023-09-03)
PROC: B24BZZ4 Ultrasonography of Heart with Aorta, Transesophageal (ICD-10-PCS; 2023-09-19)
PROC: 5A2204Z Restoration of Cardiac Rhythm, Single (ICD-10-PCS; 2023-09-19)
DX: A41.9 Sepsis, unspecified organism (principal); G93.41 Metabolic encephalopathy; I50.33 Acute on chronic diastolic (congestive) heart failure; J69.0 Pneumonitis due to inhalation of food and vomit; R57.0 Cardiogenic shock; J80 Acute respiratory distress syndrome; R65.21 Severe sepsis with septic shock; N17.9 Acute kidney failure, unspecified; J45.909 Unspecified asthma, uncomplicated; E87.6 Hypokalemia; Z79.899 Other long term (current) drug therapy; F41.9 Anxiety disorder, unspecified; F32.A Depression, unspecified; Z90.49 Acquired absence of other specified parts of digestive tract; Z90.710 Acquired absence of both cervix and uterus; K21.9 Gastro-esophageal reflux disease without esophagitis; I10 Essential (primary) hypertension; E78.5 Hyperlipidemia, unspecified; I48.0 Paroxysmal atrial fibrillation; Z79.4 Long term (current) use of insulin; I16.0 Hypertensive urgency; Z66 Do not resuscitate
CPT/HCPCS: 31500; 36415; 36416; 36556; 36600; 51702; 71045; 74230; 80048; 80053; 80162; 80306; 81001; 82805; 83605; 83735; 83880; 84145; 84484; 85025; 85610; 85730; 87040; 87070; 87205; 87449; 87899; 92960; 93005; 93306; 93312; 94002; 94003; 94640; 94760; 96374; 96375; C9113; J0282; J0360; J0456; J0692; J0696; J1160; J1630; J1650; J1940; J2060; J2185; J2543; J2704; J2920; J3010; J3475; J3480; J3490; J7030; J7050; J7070; J7120; J7611; J7620; P9047; U0002

== ENCOUNTER 2024-11-19 15:46 | Emergency (ER) | payer OTHER ==
[2024-11-19] MEDS ORDERED: Iopamidol-370 76% 500 ML MDV (1 ML CHARGE) ONE (15:54)
[2024-11-19] MEDS ORDERED: Ondansetron PF 4 MG/2 ML Vial ONE (17:38)
[2024-11-19 17:44] LABS: ALT (SGPT) 10 U/L (Less than 34); AST (SGOT) 31 U/L (11-34); Albumin 3.6 g/dL (3.1-4.5); Alkaline Phosphatase 106 U/L (40-110); Anion Gap 18 mmol/L (10-20); BUN (Urea Nitrogen) 18 mg/dL (9.8-20.1); Bilirubin, Total 0.3 mg/dL (0.3-1.2); Calc. Creatinine Clearance 0 mL/min (70-130); Calcium 9.0 mg/dL (7.8-10.44); Carbon Dioxide 25 mmol/L (23-31); Chloride 103 mmol/L (98-107); Globulin 3.5 g/dL (2.4-3.5); Glucose 107 mg/dL (80-115); Lipase 16 U/L (8-78); Potassium 4.2 mmol/L (3.5-5.1); Sodium 142 mmol/L (136-145)
[2024-11-19 18:21] LABS: #Basophils 0.12 10x3/uL (0.0-0.2); #Eosinophils 0.23 10x3/uL (0.0-0.7); #Monocytes 0.85 10x3/uL (0.11-0.59); #Neutrophils 8.24 10x3/uL (1.40-6.50); %Basophils 1.0 % (0.0-1.0); %Eosinophils 1.9 % (0.0-10.0); %Lymphocytes 20.9 % (21.0-51.0); %Monocytes 7.1 % (0.0-10.0); %Neutrophils 68.8 % (42.0-75.0); Hematocrit 43.5 % (36.0-47.0); Hemoglobin 13.6 g/dL (12.0-16.0); Mean Corpuscular Hemoglobin 29.1 pg (27.0-31.0); Mean Corpuscular Volume 92.9 fL (78.0-98.0); Platelet Count 322 10x3/uL (130-400); Red Blood Cell (RBC) Count 4.68 mill/uL (4.20-5.40); White Blood Cell (WBC) Count 11.98 10x3/uL (4.8-10.8)
[2024-11-19 20:17] LABS: Bacteria/HPF None Seen HPF (None Seen); CAUTI Indications for Culture Pelvic or flank pain; Glucose, Urine (Dipstick) Normal (Negative); Leukocyte Negative Leu/uL (Negative); Protein, Urine (Dipstick) Negative (Neg-Trace); RBC/HPF 0-3 HPF (0-3); WBC/HPF 0-3 HPF (0-3)
[2024-11-19 20:18] LABS: Specific Gravity, Urine Greater than 1.050 (1.002-1.036)
[2024-11-19 20:19] LABS: Urine Culture Reflex No No
== END 2024-11-19 20:40 | disposition home or self-care (01) ==
LOC: ERS 15:46
DX: R10.32 Left lower quadrant pain (principal); I10 Essential (primary) hypertension; I48.91 Unspecified atrial fibrillation; F41.9 Anxiety disorder, unspecified; F17.290 Nicotine dependence, other tobacco product, uncomplicated; Z75.3 Unavailability and inaccessibility of health-care facilities
CPT/HCPCS: 74177; 80053; 81001; 83690; 85025; 96374; Q9967

== ENCOUNTER 2024-11-25 10:06 | Emergency (ER) | payer OTHER ==
[2024-11-25] MEDS ORDERED: Ketorolac Tromethamine 30 MG (1 mL) VIAL ONE (11:57)
== END 2024-11-25 12:15 | disposition home or self-care (01) ==
LOC: ERS 10:06
DX: M17.11 Unilateral primary osteoarthritis, right knee (principal); I10 Essential (primary) hypertension; I48.91 Unspecified atrial fibrillation; F17.290 Nicotine dependence, other tobacco product, uncomplicated
CPT/HCPCS: 96372; 99283; J1885

== ENCOUNTER 2025-01-19 06:10 | Inpatient (IN) | payer MEDICARE, OTHER ==
[2025-01-19] MEDS ORDERED: dilTIAZem 25 MG/5 ML VIAL ONE (06:42)
[2025-01-19 07:07] LABS: #Basophils 0.10 10x3/uL (0.0-0.2); #Eosinophils 0.20 10x3/uL (0.0-0.7); #Monocytes 0.96 10x3/uL (0.11-0.59); #Neutrophils 7.41 10x3/uL (1.40-6.50); %Basophils 0.9 % (0.0-1.0); %Eosinophils 1.7 % (0.0-10.0); %Lymphocytes 24.9 % (21.0-51.0); %Monocytes 8.3 % (0.0-10.0); %Neutrophils 63.9 % (42.0-75.0); Hematocrit 39.1 % (36.0-47.0); Hemoglobin 12.1 g/dL (12.0-16.0); Mean Corpuscular Hemoglobin 28.1 pg (27.0-31.0); Mean Corpuscular Volume 90.9 fL (78.0-98.0); Platelet Count 354 10x3/uL (130-400); Red Blood Cell (RBC) Count 4.30 mill/uL (4.20-5.40); White Blood Cell (WBC) Count 11.60 10x3/uL (4.8-10.8)
[2025-01-19 07:21] LABS: Magnesium 1.8 mg/dL (1.6-2.6)
[2025-01-19 07:22] LABS: ALT (SGPT) 7 U/L (Less than 34); AST (SGOT) 16 U/L (11-34); Acetaminophen Less than 10 mcg/mL (Less than 10); Albumin 3.3 g/dL (3.1-4.5); Alkaline Phosphatase 110 U/L (40-110); Anion Gap 15 mmol/L (10-20); BUN (Urea Nitrogen) 11 mg/dL (9.8-20.1); Bilirubin, Total 0.4 mg/dL (0.3-1.2); Calc. Creatinine Clearance 0 mL/min (70-130); Calcium 8.3 mg/dL (7.8-10.44); Carbon Dioxide 23 mmol/L (23-31); Chloride 105 mmol/L (98-107); Globulin 3.1 g/dL (2.4-3.5); Glucose 120 mg/dL (80-115); Potassium 3.1 mmol/L (3.5-5.1); Salicylate Less than 8.0 mg/dL (Less than 8.0); Sodium 140 mmol/L (136-145)
[2025-01-19 08:10] LABS: Bacteria/HPF None Seen HPF (None Seen); CAUTI Indications for Culture Pelvic or flank pain; Glucose, Urine (Dipstick) Normal (Negative); Leukocyte Negative Leu/uL (Negative); Protein, Urine (Dipstick) Negative (Neg-Trace); RBC/HPF 0-3 HPF (0-3); Specific Gravity, Urine 1.016 (1.002-1.036); WBC/HPF 0-3 HPF (0-3)
[2025-01-19 08:11] LABS: Urine Culture Reflex No No
[2025-01-19 08:24] LABS: Cocaine Metabolite Screen Negative (Negative); THC/Cannabinoid Screen Negative (Negative); Tricyclic Screen Negative (Negative)
[2025-01-19] MEDS ORDERED: Furosemide 40 MG (4 mL) VIAL ONE (09:44)
[2025-01-19] MEDS ORDERED: Aspirin Chewable 81 MG TAB ONE (09:58)
[2025-01-19] MEDS ORDERED: Nitroglycerin 0.4 MG TAB 1 EACH ONE (09:58)
[2025-01-19] MEDS ORDERED: Acetaminophen 500 MG TAB ONE (09:58)
[2025-01-19] MEDS ORDERED: Senokot S 8.6-50 MG TAB PO PRN (10:31)
[2025-01-19] MEDS ORDERED: Melatonin 3 MG TAB PO PRN (10:31)
[2025-01-19] MEDS: Magnesium 2 GM/50 ML(in water) 2 GM in Premix 1 BAG IVPB SCH (13:04)
[2025-01-19 13:58] VITALS: BMI 37.8
[2025-01-19 17:03] LABS: Influenza A by NAA Not Detected (NotDetected); Influenza B by NAA Not Detected (NotDetected); RSV by NAA Not Detected (NotDetected); SARS-CoV-2 NAA Rapid Test Not Detected (NotDetected)
[2025-01-19] MEDS ORDERED: Albuterol 200 PUFF (6.7GM INHALER) INH PRN (18:54)
[2025-01-19] MEDS ORDERED: Electrolyte Replacement Protocol 1 EACH FS SCH (22:00)
[2025-01-19] MEDS ORDERED: PHOS-NAK 1 PKT PACK PO PRN (22:00)
[2025-01-19] MEDS ORDERED: Potassium Chloride 20 MEQ in Premix 1 BAG IVPB PRN (22:00)
[2025-01-19] MEDS ORDERED: Magnesium 2 GM/50 ML(in water) 2 GM in Premix 1 BAG IVPB PRN (22:00)
[2025-01-19] MEDS: Apixaban 5 MG TAB PO SCH (22:10)
[2025-01-19] MEDS: Acetaminophen 325 MG TAB PO PRN (22:10)
[2025-01-19] MEDS: Famotidine 20 MG TAB PO SCH (22:10)
[2025-01-19] MEDS: dilTIAZem 25 MG/5 ML VIAL SLOW IVP SCH (22:11)
[2025-01-19 23:44] VITALS: BMI 37.8
[2025-01-20 04:46] LABS: #Basophils 0.11 10x3/uL (0.0-0.2); #Eosinophils 0.23 10x3/uL (0.0-0.7); #Monocytes 0.93 10x3/uL (0.11-0.59); #Neutrophils 5.76 10x3/uL (1.40-6.50); %Basophils 1.2 % (0.0-1.0); %Eosinophils 2.5 % (0.0-10.0); %Lymphocytes 24.6 % (21.0-51.0); %Monocytes 9.9 % (0.0-10.0); %Neutrophils 61.5 % (42.0-75.0); Hematocrit 40.7 % (36.0-47.0); Hemoglobin 12.5 g/dL (12.0-16.0); Mean Corpuscular Hemoglobin 28.2 pg (27.0-31.0); Mean Corpuscular Volume 91.7 fL (78.0-98.0); Platelet Count 347 10x3/uL (130-400); Red Blood Cell (RBC) Count 4.44 mill/uL (4.20-5.40); White Blood Cell (WBC) Count 9.36 10x3/uL (4.8-10.8)
[2025-01-20 05:06] LABS: Anion Gap 16 mmol/L (10-20); BUN (Urea Nitrogen) 13 mg/dL (9.8-20.1); Calc. Creatinine Clearance 122 mL/min (70-130); Calcium 8.9 mg/dL (7.8-10.44); Carbon Dioxide 21 mmol/L (23-31); Chloride 110 mmol/L (98-107); Glucose 148 mg/dL (80-115); Magnesium 1.8 mg/dL (1.6-2.6); Potassium 3.5 mmol/L (3.5-5.1); Sodium 143 mmol/L (136-145)
[2025-01-20] MEDS: Aspirin Chewable 81 MG TAB PO SCH (09:58)
[2025-01-20] MEDS: DULoxetine 30 MG CAP PO SCH (09:58)
[2025-01-20] MEDS: Furosemide 20 MG (2 mL) VIAL SLOW IVP SCH (09:58)
[2025-01-20] MEDS: Multivitamin w/Zinc Stress 1 TAB PO SCH (09:58)
[2025-01-20] MEDS: dilTIAZem 25 MG/5 ML VIAL SLOW IVP SCH (11:13)
[2025-01-20] MEDS: Diltiazem HCl/D5W 125 MG in Premix 1 BAG IVPB SCH (11:14)
[2025-01-20] MEDS: Apixaban 5 MG TAB PO SCH (20:34)
[2025-01-21] MEDS: Ketorolac Tromethamine 30 MG (1 mL) VIAL IVP SCH ×2 (00:17→04:31)
[2025-01-21 04:20] LABS: #Basophils 0.08 10x3/uL (0.0-0.2); #Eosinophils 0.22 10x3/uL (0.0-0.7); #Monocytes 1.20 10x3/uL (0.11-0.59); #Neutrophils 7.21 10x3/uL (1.40-6.50); %Basophils 0.7 % (0.0-1.0); %Eosinophils 1.9 % (0.0-10.0); %Lymphocytes 23.0 % (21.0-51.0); %Monocytes 10.6 % (0.0-10.0); %Neutrophils 63.4 % (42.0-75.0); Hematocrit 38.8 % (36.0-47.0); Hemoglobin 12.2 g/dL (12.0-16.0); Mean Corpuscular Hemoglobin 28.6 pg (27.0-31.0); Mean Corpuscular Volume 90.9 fL (78.0-98.0); Platelet Count 318 10x3/uL (130-400); Red Blood Cell (RBC) Count 4.27 mill/uL (4.20-5.40); White Blood Cell (WBC) Count 11.37 10x3/uL (4.8-10.8)
[2025-01-21 04:32] LABS: Anion Gap 13 mmol/L (10-20); BUN (Urea Nitrogen) 15 mg/dL (9.8-20.1); Calc. Creatinine Clearance 116 mL/min (70-130); Calcium 8.7 mg/dL (7.8-10.44); Carbon Dioxide 26 mmol/L (23-31); Chloride 107 mmol/L (98-107); Glucose 101 mg/dL (80-115); Potassium 3.7 mmol/L (3.5-5.1); Sodium 142 mmol/L (136-145)
[2025-01-21] MEDS ORDERED: PROPOFOL 200 MG/20 ML VIAL ONE (10:29)
[2025-01-21] MEDS ORDERED: Lidocaine 1% PF 5 ML VIAL ONE (10:29)
[2025-01-21] MEDS ORDERED: Apixaban 5 MG TAB ONE (10:59)
[2025-01-21] MEDS: Apixaban 5 MG TAB PO SCH ×2 (11:15→20:06)
[2025-01-21] MEDS: Metoprolol Succinate XL 25 MG ER.TAB PO SCH (17:03)
[2025-01-22 04:55] LABS: #Basophils 0.08 10x3/uL (0.0-0.2); #Eosinophils 0.21 10x3/uL (0.0-0.7); #Monocytes 0.92 10x3/uL (0.11-0.59); #Neutrophils 9.29 10x3/uL (1.40-6.50); %Basophils 0.6 % (0.0-1.0); %Eosinophils 1.6 % (0.0-10.0); %Lymphocytes 19.5 % (21.0-51.0); %Monocytes 7.0 % (0.0-10.0); %Neutrophils 70.9 % (42.0-75.0); Hematocrit 45.7 % (36.0-47.0); Hemoglobin 14.3 g/dL (12.0-16.0); Mean Corpuscular Hemoglobin 28.7 pg (27.0-31.0); Mean Corpuscular Volume 91.8 fL (78.0-98.0); Platelet Count 355 10x3/uL (130-400); Red Blood Cell (RBC) Count 4.98 mill/uL (4.20-5.40); White Blood Cell (WBC) Count 13.11 10x3/uL (4.8-10.8)
[2025-01-22 05:03] LABS: Anion Gap 16 mmol/L (10-20); BUN (Urea Nitrogen) 16 mg/dL (9.8-20.1); Calc. Creatinine Clearance 118 mL/min (70-130); Calcium 9.0 mg/dL (7.8-10.44); Carbon Dioxide 24 mmol/L (23-31); Chloride 107 mmol/L (98-107); Glucose 95 mg/dL (80-115); Potassium 3.6 mmol/L (3.5-5.1); Sodium 143 mmol/L (136-145)
[2025-01-22 08:15] LABS: Magnesium 2.0 mg/dL (1.6-2.6)
[2025-01-22] MEDS: Metoprolol Succinate XL 25 MG ER.TAB PO SCH ×2 (09:16→11:33)
[2025-01-22 11:31] VITALS: BP 126/86; TEMP 98.3
[2025-01-23] MEDS ORDERED: Metoprolol Succinate XL 50 MG ER.TAB PO SCH (09:00)
== END 2025-01-22 13:22 | disposition home or self-care (01) | DRG 308 ==
LOC: ERS 06:10 → 2NO 10:44 → OBSVTOIN 01-20 13:15
PROVIDERS: ADMIT Family Medicine; ATTEND Student in an Organized Health Care Education/Training Program
PROC: 5A2204Z Restoration of Cardiac Rhythm, Single (ICD-10-PCS; principal; 2025-01-21)
DX: I48.19 Other persistent atrial fibrillation (principal); J96.01 Acute respiratory failure with hypoxia; I50.32 Chronic diastolic (congestive) heart failure; K21.9 Gastro-esophageal reflux disease without esophagitis; J45.909 Unspecified asthma, uncomplicated; E78.5 Hyperlipidemia, unspecified; F31.9 Bipolar disorder, unspecified; R07.9 Chest pain, unspecified; F41.9 Anxiety disorder, unspecified; F10.90 Alcohol use, unspecified, uncomplicated; F17.210 Nicotine dependence, cigarettes, uncomplicated; F17.290 Nicotine dependence, other tobacco product, uncomplicated; I11.0 Hypertensive heart disease with heart failure; I49.5 Sick sinus syndrome; E87.6 Hypokalemia; Z96.652 Presence of left artificial knee joint; Z86.718 Personal history of other venous thrombosis and embolism; Z98.890 Other specified postprocedural states; Z90.49 Acquired absence of other specified parts of digestive tract; Z90.710 Acquired absence of both cervix and uterus; Z79.899 Other long term (current) drug therapy; Z79.01 Long term (current) use of anticoagulants; I47.19 Other supraventricular tachycardia; E66.9 Obesity, unspecified; I73.9 Peripheral vascular disease, unspecified; Z68.38 Body mass index [BMI] 38.0-38.9, adult
CPT/HCPCS: 36415; 71045; 80048; 80053; 80306; 80307; 81001; 83735; 83880; 84484; 85025; 87637; 92960; 93005; 93010; 93306; 96374; 96375; 96376; G0378; J1885; J1940; J2704